=== PATIENT | male | born 1930 | race Caucasian/White ===

== ENCOUNTER 2016-12-06 11:22 | Emergency (ER) | payer BC, MEDICARE ==
[2016-12-06 13:15] VITALS: BP 119/61
[2016-12-06] MEDS ORDERED: NS 0.9% 1000 ML* 1,000 ML IV ONE (14:55)
--- NOTE | 2016-12-06 15:51 | RAD ---
HISTORY: Generalized weakness, right-sided head trauma COMPARISONS: March 28, 2015 TECHNIQUE: Multiple contiguous axial CT scans were obtained of the head without intravenous contrast. FINDINGS: HEMORRHAGE/INFARCT: There is no hemorrhage or acute infarct. MASSES/SHIFT: There is no mass or shift. EXTRA-AXIAL SPACES: There are no extra-axial fluid collections. SULCI AND VENTRICLES: The sulci and ventricles are normal in size and position for the patient's stated age. CEREBRUM: There is hypoattenuation of the periventricular and subcortical white matter. BRAINSTEM: There are no focal parenchymal abnormalities. CEREBELLUM: There are no focal parenchymal abnormalities. VESSELS: The vessels are grossly normal. PARANASAL SINUSES: There is no-fluid level within the right maxillary sinus ORBITS: The orbits are unremarkable. BONES AND SOFT TISSUE: No bone or soft tissue abnormalities are noted. OTHER: None IMPRESSION: 1. NO ACUTE INTRACRANIAL PATHOLOGY. 2. AIR-FLUID LEVEL WITHIN THE RIGHT MAXILLARY SINUS. IN THE CORRECT CLINICAL SETTING, THIS MAY REPRESENT ACUTE SINUSITIS
--- NOTE | 2016-12-06 15:52 | RAD ---
HISTORY: Weakness COMPARISONS: March 28, 2015 VIEWS:1: Single frontal portable view of the chest at 3:28 PM FINDINGS: LINES AND TUBES: None. CARDIOMEDIASTINAL SILHOUETTE: The cardiomediastinal silhouette is normal for portable technique. PLEURA: The costophrenic angles are sharp. No pleural abnormalities are noted. LUNG PARENCHYMA: The lungs are clear. ABDOMEN: The upper abdomen is clear. There is no subphrenic gas. BONES AND SOFT TISSUES: Degenerative changes are noted IMPRESSION: NO ACTIVE CARDIOPULMONARY DISEASE.
[2016-12-06 16:47] LABS: Hematocrit 42 % (42-52); Hemoglobin 13.8 g/dl (14.0-18.0); Mean Corpuscular HGB Conc 33 g/dl (31-36); Mean Corpuscular Hemoglobin 29 pg (27-31); Mean Corpuscular Volume 89 fL (80-94); Mean Platelet Volume 9 um3 (7.4-10.4); Red Blood Count 4.72 10^6/ul (4.0-5.4); Red Cell Distribution Width 14 % (10.5-15); Urine Bacteria Absent (Absent); Urine Bilirubin Negative (Negative); Urine Glucose Negative (Negative); Urine Nitrite Negative (Negative); White Blood Count 5.8 10^3/ul (3.5-10.8)
[2016-12-06 17:04] LABS: Troponin I 0.01 ng/mL (<0.04)
[2016-12-06 17:20] LABS: Albumin 3.6 g/dL (3.2-5.2); C Reactive Protein 31.71 mg/L (< 5.00); Calcium 9.2 mg/dL (8.6-10.3); EGFR African American 74.9 (>60); EGFR Non-African American 58.3 (>60); Globulin 2.8 g/dL (2-4); Magnesium 2.2 mg/dL (1.9-2.7); Potassium 4.2 mmol/L (3.5-5.0); Total Bilirubin 0.4 mg/dL (0.2-1.0); Total Protein 6.4 g/dL (6.4-8.9)
[2016-12-06 17:27] LABS: TSH (Thyroid Stimulating Horm) 1.17 mcIU/mL (0.34-5.60)
[2016-12-06] MEDS ORDERED: Amoxicillin/Clavulanate TAB* 875 MG PO ONE (17:40)
--- NOTE | 2016-12-06 17:43 | ED ---
Christoph Larry Aidan, scribed for Toribio Rojas MD on 12/06/16 at 1505 . Complex/Multi-Sys Presentation - HPI Summary HPI Summary: 86 y/o male presents to the ED with a complaint of an acute, constant, moderate injury due to an unwitnessed fall yesterday during which he lacerated his right ear. There was no reported LOC. According to the patient, he fell because his right leg gave out. Hx of neuropathy. Additionally, according to his daughter, he has been getting weaker over the past 2 weeks and now needs to walk with a cane (whereas, before, he was able to walk unassisted). Associated symptoms include worsening tremors over the past 2 weeks. Pt denies taking any blood thinners. 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 Onset/Duration: Sudden Onset, Lasting Hours, Still Present Timing: Constant - constant laceration, Pt has been getting weaker over the past 2 weeks and now needs to walk with a cane, Intermittent, Lasting: - intermittent episodes of tremors Severity Currently: Moderate Severity Initially: Moderate Aggravating Factor(s): unknown Alleviating Factor(s): unknown Associated Signs And Symptoms: Positive: Other - laceration to right ear, tremors, increased weakness over the past 2 weeks, episode of falling yesterday - Allergies/Home Medications Allergies/Adverse Reactions: Allergies Allergy/AdvReac Type Severity Reaction Status Date / Time No Known Allergies Allergy Verified 03/28/15 11:51 PMH/Surg Hx/FS Hx/Imm Hx Endocrine/Hematology History: Denies: Hx Diabetes Cardiovascular History: Denies: Hx Hypertension, Hx Pacemaker/ICD Respiratory History: Denies: Hx Asthma, Hx Chronic Obstructive Pulmonary Disease (COPD) Sensory History: Denies: Hx Hearing Aid Psychiatric History: Denies: Hx Panic Disorder - Cancer History Cancer Type, 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 TONSILS. WISDOM TEETH Infectious Disease History: No Infectious Disease History: Denies: Traveled Outside the [place] in Last 30 Days - Family History Known Family History: Positive: Hypertension - Social History Occupation: Retired Lives: Alone Alcohol Use: Daily Alcohol Amount: BEER DAILY Substance Use Type: Reports: None Smoking Status (MU): Former Smoker Review of Systems Constitutional: Other - increased weakness over the past 2 weeks, worsening tremors Negative: Fever, Chills, Fatigue Eyes: Negative ENT: Other - laceration to right ear resulting from a fall yesterday Negative: Epistaxis, Dental Pain, Sore Throat, Ear Ache Cardiovascular: Negative Respiratory: Negative Gastrointestinal: Negative Genitourinary: Negative Musculoskeletal: Negative Neurological: Other - episode of falling yesterday Positive: Weakness. Negative: Headache, Paresthesia, Numbness, Slurred Speech Psychological: Normal All Other Systems Reviewed And Are Negative: Yes Physical Exam Triage Information Reviewed: Yes Vital Signs On Initial Exam: Initial Vitals Temp Pulse Resp BP Pulse Ox 98.5 F 55 18 130/59 98 12/06/16 11:34 12/06/16 11:34 12/06/16 11:34 12/06/16 11:34 12/06/16 11:34 Vital Signs Reviewed: Yes Appearance: Positive: Well-Appearing, No Pain Distress Skin: Positive: Warm, Skin Color Reflects Adequate Perfusion, Dry, Other - two linear laceration to right ear, one 3mm and the other 4mm, presenting with dried blood Head/Face: Positive: Normal Head/Face Inspection Eyes: Positive: EOMI, YULIA, Other: - pupils about 2mm both sides ENT: Positive: Normal ENT inspection, Other - slightly dry oral mucosa, no blood in ear canal Neck: Positive: Supple, Nontender Respiratory/Lung Sounds: Positive: Clear to Auscultation, Breath Sounds Present Cardiovascular: Positive: Murmur. Negative: RRR Abdomen Description: Positive: Nontender, Soft Bowel Sounds: Positive: Present Musculoskeletal: Positive: Normal, Strength/ROM Intact Neurological: Positive: Normal, Sensory/Motor Intact, Alert, Oriented to Person Place, Time Psychiatric: Positive: Normal, Affect/Mood Appropriate Procedures - Laceration/Wound Repair 2 Location: Other - right ear Description: Linear - one was 3mm and other was 4mm Length, Depth and Shape: one laceration was 3mm long, the other was 4mm long Betadine Prep?: No Irrigated w/ Saline (ccs): 3 Laceration/Wound Explored: clean Closure: SteriStrips Suture Type: Other - used glue Layer Closure?: Yes Diagnostics - Vital Signs Vital Signs Temp Pulse Resp BP Pulse Ox 12/06/16 13:14 98.2 F 50 18 119/61 99 12/06/16 11:34 98.5 F 55 18 130/59 98 - Laboratory Lab Results: Lab Results 12/06/16 12/06/16 12/06/16 Range/Units 16:30 16:30 16:30 WBC 5.8 (3.5-10.8) 10^3/ul RBC 4.72 (4.0-5.4) 10^6/ul Hgb 13.8 L (14.0-18.0) g/dl Hct 42 (42-52) % MCV 89 (80-94) fL MCH 29 (27-31) pg MCHC 33 (31-36) g/dl RDW 14 (10.5-15) % Plt Count 131 L (150-450) 10^3/ul MPV 9 (7.4-10.4) um3 Neut % (Auto) 43.3 (38-83) % Lymph % (Auto) 28.6 (25-47) % [place] % (Auto) 23.9 H (1-9) % Eos % (Auto) 3.4 (0-6) % Baso % (Auto) 0.8 (0-2) % Absolute Neuts (auto) 2.5 (1.5-7.7) 10^3/ul Absolute Lymphs (auto) 1.7 (1.0-4.8) 10^3/ul Absolute Monos (auto) 1.4 H (0-0.8) 10^3/ul Absolute Eos (auto) 0.2 (0-0.6) 10^3/ul Absolute Basos (auto) 0 (0-0.2) 10^3/ul Absolute Nucleated RBC 0.01 10^3/ul Nucleated RBC % 0.1 INR (Anticoag Therapy) 1.05 (0.89-1.11) APTT 30.1 (26.0-36.3) seconds Sodium (133-145) mmol/L Potassium (3.5-5.0) mmol/L Chloride (101-111) mmol/L Carbon Dioxide (22-32) mmol/L Anion Gap (2-11) mmol/L BUN (6-24) mg/dL Creatinine (0.67-1.17) mg/dL Est GFR ( Amer) (>60) Est GFR (Non-Af Amer) (>60) BUN/Creatinine Ratio (8-20) Glucose (70-100) mg/dL Lactic Acid (0.5-2.0) mmol/L Calcium (8.6-10.3) mg/dL Magnesium (1.9-2.7) mg/dL Total Bilirubin (0.2-1.0) mg/dL AST (13-39) U/L ALT (7-52) U/L Alkaline Phosphatase (34-104) U/L Total Creatine Kinase (10-223) U/L CK-MB (CK-2) (0.6-6.3) ng/mL Troponin I (<0.04) ng/mL C-Reactive Protein (< 5.00) mg/L B-Natriuretic Peptide ( - 100) pg/mL Total Protein (6.4-8.9) g/dL Albumin (3.2-5.2) g/dL Globulin (2-4) g/dL Albumin/Globulin Ratio (1-3) Lipase (11.0-82.0) U/L TSH (0.34-5.60) mcIU/mL Urine Color Yellow Urine Appearance Clear Urine pH 5.0 (5-9) Ur Specific [place] 1.020 (1.010-1.030) Urine Protein Negative (Negative) Urine Ketones Negative (Negative) Urine Blood 1+ H (Negative) Urine Nitrate Negative (Negative) Urine Bilirubin Negative (Negative) Urine Urobilinogen Negative (Negative) Ur Leukocyte Esterase Negative (Negative) Urine WBC (Auto) Absent (Absent) Urine RBC (Auto) Trace(0-2/hpf) (Absent) Ur Squamous Epith Cells Present H (Absent) Urine Bacteria Absent (Absent) Urine Glucose Negative (Negative) 12/06/16 12/06/16 12/06/16 Range/Units 16:30 16:30 16:30 WBC (3.5-10.8) 10^3/ul RBC (4.0-5.4) 10^6/ul Hgb (14.0-18.0) g/dl Hct (42-52) % MCV (80-94) fL MCH (27-31) pg MCHC (31-36) g/dl RDW (10.5-15) % Plt Count (150-450) 10^3/ul MPV (7.4-10.4) um3 Neut % (Auto) (38-83) % Lymph % (Auto) (25-47) % V[place] % (Auto) (1-9) % Eos % (Auto) (0-6) % Baso % (Auto) (0-2) % Absolute Neuts (auto) (1.5-7.7) 10^3/ul Absolute Lymphs (auto) (1.0-4.8) 10^3/ul Absolute Monos (auto) (0-0.8) 10^3/ul Absolute Eos (auto) (0-0.6) 10^3/ul Absolute Basos (auto) (0-0.2) 10^3/ul Absolute Nucleated RBC 10^3/ul Nucleated RBC % INR (Anticoag Therapy) (0.89-1.11) APTT (26.0-36.3) seconds Sodium 138 (133-145) mmol/L Potassium 4.2 (3.5-5.0) mmol/L Chloride 108 (101-111) mmol/L Carbon Dioxide 24 (22-32) mmol/L Anion Gap 6 (2-11) mmol/L BUN 26 H (6-24) mg/dL Creatinine 1.18 H (0.67-1.17) mg/dL Est GFR ( Amer) 74.9 (>60) Est GFR (Non-Af Amer) 58.3 (>60) BUN/Creatinine Ratio 22.0 H (8-20) Glucose 101 H (70-100) mg/dL Lactic Acid 1.3 (0.5-2.0) mmol/L Calcium 9.2 (8.6-10.3) mg/dL Magnesium 2.2 (1.9-2.7) mg/dL Total Bilirubin 0.40 (0.2-1.0) mg/dL AST 26 (13-39) U/L ALT 15 (7-52) U/L Alkaline Phosphatase 59 (34-104) U/L Total Creatine Kinase 103 (10-223) U/L CK-MB (CK-2) 3.0 (0.6-6.3) ng/mL Troponin I 0.01 (<0.04) ng/mL C-Reactive Protein 31.71 H (< 5.00) mg/L B-Natriuretic Peptide 141 H ( - 100) pg/mL Total Protein 6.4 (6.4-8.9) g/dL Albumin 3.6 (3.2-5.2) g/dL Globulin 2.8 (2-4) g/dL Albumin/Globulin Ratio 1.3 (1-3) Lipase 37 (11.0-82.0) U/L TSH 1.17 (0.34-5.60) mcIU/mL Urine Color Urine Appearance Urine pH (5-9) Ur Specific [place] (1.010-1.030) Urine Protein (Negative) Urine Ketones (Negative) Urine Blood (Negative) Urine Nitrate (Negative) Urine Bilirubin (Negative) Urine Urobilinogen (Negative) Ur Leukocyte Esterase (Negative) Urine WBC (Auto) (Absent) Urine RBC (Auto) (Absent) Ur Squamous Epith Cells (Absent) Urine Bacteria (Absent) Urine Glucose (Negative) Result Diagrams: 12/06/16 16:30 12/06/16 16:30 Lab Statement: Any lab studies that have been ordered have been reviewed, and results considered in the medical decision making process. Complex Multi-Symp Course/Dx Assessment/Plan: WELL IN ED. GIVEN NS 1 LITER IN ED. DISCUSSED RESULTS WITH PATIENT/DAUGHTER. DISCUSSED ABX TREATMENT FOR CT FINDING OF SINUSITIS. WILL RX AUGMENTIN. DISCHARGE HOME STABLE. - Diagnoses Provider Diagnoses: Sinusitis, Dehydration, Ear lobe laceration, Head injury Discharge - Discharge Plan Condition: Stable Disposition: HOME Prescriptions: Amoxicillin/Clavulanate TAB* [Augmentin TAB 875*] 875 mg PO BID #19 tab Patient Education Materials: Dehydration (ED), Laceration (ED), Sinusitis (ED) , Skin Adhesive Care (ED) Referrals: Ming Houston MD [Primary Care Provider] - Additional Instructions: FOLLOW UP WITH YOUR DOCTOR. RETURN TO THE EMERGENCY DEPARTMENT FOR ANY WORSENING OF YOUR CONDITION OR QUESTIONS OR CONCERNS. The documentation as recorded by the Christoph perez Aidan accurately reflects the service I personally performed and the decisions made by me, Toribio Rojas MD.
== END 2016-12-06 18:40 | disposition home or self-care (01) ==
LOC: ED 11:22
DX: S01.311A Laceration without foreign body of right ear, initial encounter (principal); J32.9 Chronic sinusitis, unspecified; E86.0 Dehydration; S09.90XA Unspecified injury of head, initial encounter; W19.XXXA Unspecified fall, initial encounter; Y92.9 Unspecified place or not applicable; Z85.828 Personal history of other malignant neoplasm of skin; Z87.891 Personal history of nicotine dependence; R25.1 Tremor, unspecified
CPT/HCPCS: 12011; 36415; 70450; 71010; 80053; 81003; 81015; 82550; 82553; 83605; 83690; 83735; 83880; 84443; 84484; 85025; 85610; 85730; 86140; 99282

== ENCOUNTER 2017-06-06 14:31 | Emergency (ER) | payer MEDICARE ==
[2017-06-06] MEDS ORDERED: Acetaminophen TAB* 325 MG PO ONE (16:27)
--- NOTE | 2017-06-06 16:28 | UC ---
Estiven Larry Benjamin, scribed for Karina Sierra MD on 06/06/17 at 1618 . Laceration HPI - HPI Summary HPI Summary: 87yo male presents with upper lip abrasion, bilateral patellar abrasions from a mechanical fall this afternoon. Pt missed a step and fell face forward injuring his lip and right knee cap. Pt was not using his cane or other assist device at the time of injury. Pt denies blood HEENT. Pt denies broken teeth. No neck or back pain. Pt denies head injury other than upper lip. No cp, sob, abd pain. No n/v. denies neck or back pain. Pt has ambulated following incident. . Pt didnt pass out upon falling and pt states recalling the entire episode. 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 Hx of ITP, AAA, and TIA. FHx of CAD. Denies Hx of OR. Reviewed pts medication and allergy lists. - History Of Current Complaint Chief Complaint: UCGeneralIllness Stated Complaint: LIP LACERATION/KNEE INJURY-FALL Time Seen by Provider: 06/06/17 16:04 Hx Obtained From: Patient, Family/Shorth[employer] Reporter - daughter Laceration Location: Knee - bialteral knee caps; and upper lip Mechanism Of Injury: Blunt Trauma - fall from standing height Severity: Mild Pain Intensity: 0 Pain Scale Used: 0-10 Numeric Aggravating Factors: Nothing - Allergies/Home Medications Allergies/Adverse Reactions: Allergies Allergy/AdvReac Type Severity Reaction Status Date / Time No Known Allergies Allergy Verified 03/28/15 11:51 PMH/Surg Hx/FS Hx/Imm Hx Previously Healthy: No - Skin CA, ITP Endocrine History: Hypothyroidism - Surgical History Surgical History: Yes Surgery Procedure, Year, and Place: RT HIP REPLACEMENT. TONSILS. WISDOM TEETH - Family History Known Family History: Positive: Cardiac Disease, Hypertension - Social History Occupation: Retired Lives: With Family - at [employer] Alcohol Use: None Alcohol Amount: BEER DAILY Substance Use Type: None Smoking Status (MU): Never Smoked Tobacco Review of Systems Constitutional: Negative Skin: Other - laceration: upper lip, right knee cap. Abrasion: left knee cap Eyes: Negative ENT: Negative Respiratory: Negative Cardiovascular: Negative Gastrointestinal: Negative Genitourinary: Negative Motor: Negative Neurovascular: Negative Musculoskeletal: Negative Neurological: Negative Psychological: Negative All Other Systems Reviewed And Are Negative: Yes Physical Exam Triage Information Reviewed: Yes Appearance: Well-Appearing, No Pain Distress, Well-Nourished Vital Signs: Initial Vital Signs Temp 98 F 06/06/17 14:51 Pulse 54 06/06/17 14:51 Resp 16 06/06/17 14:51 BP 142/57 06/06/17 14:51 Pulse Ox 100 06/06/17 14:51 Vital Signs Reviewed: Yes Eye Exam: Normal Eyes: Positive: Conjunctiva Clear ENT: Positive: Normal ENT inspection, Hearing grossly normal, Pharynx normal, TMs normal, Other: - No hemotymp b/l No septal hematoma b/l No broken or loose teeth No blood oropharphynx Dental Exam: Normal Neck exam: Normal Neck: Positive: Supple, Nontender, No Lymphadenopathy Respiratory Exam: Normal Respiratory: Positive: Chest non-tender, Lungs clear, Normal breath sounds, No respiratory distress Cardiovascular Exam: Normal Cardiovascular: Positive: RRR, No Murmur, Pulses Normal Abdominal Exam: Normal Abdomen Description: Positive: Nontender, No Organomegaly, Soft Bowel Sounds: Positive: Present Musculoskeletal: Positive: Other: - + SLE b/l + flex/ext knee, ankle without pain or limitation No pain c/t/l/s Full AROM c spine Neurological Exam: Normal Neurological: Positive: Alert, Muscle Tone Normal Psychological Exam: Normal Skin: Positive: Other - Pt with non-suturable abraison to b/l knee, midline upper lip at [place] border Pt with small laceration inside upper lip, midline - not suturable minimal edema No ecchymosis, abrasion, lacerations to chest, abd, back Diagnostics - Radiology Brain CT WO Xray Interpretation: No Acute Changes - IMPRESSION: 1. New since the most recent CT of the brain dated December 06, 2016, there is hyperdense 3 mm thickening of the falx cerebri which could be seen in the setting of subarachnoid hemorrhage status post trauma. 2. Additional chronic findings similar in appearance to the previous CT of the brain. Radiology Interpretation Completed By: Radiologist Re-Evaluation - Re-Evaluation First Eval Re-Evaluation Time: 17:27 Comment: Discussed imaging results with the pt, concern for possible subarachnoid on CT. Upon recheck of vitals, pt with low heart rate (46) - daughter states this has happened before. after discussing with pt and daughter - recommend transfer to ED by EMS. will check BG. IV. EKG. daughter in agreement with plan Laceration Course/Dx - Course/Dx Course Of Treatment: Blood pressure noted and patient informed to follow up with PCP. Discussed with Dr. Salinas ([facility]) for transfer via EMS at 17:37. Pt with a mechanical fall with abrasions to upper lip and bilateral knees. Pt with h/o ITP. Will clean wounds - non suturable. APAP. d/w daughter wound care. anticipate increased stiffness. PCP f/u. CT head. strong recommendation of assistance device - Differential Dx - Laceration/Wound Provider Diagnoses: abrasions, fall, possible SAH - Physician Notification/Consults Discussed Patient Care With: Dr. Salinas - [id number] Discharge - Discharge Plan Condition: Good Disposition: TRANS HIGHER LVL OF CARE FAC Referrals: Ming Houston MD [Primary Care Provider] - The documentation as recorded by the Estiven perez Benjamin accurately reflects the service I personally performed and the decisions made by , Karina Sierra MD.
[2017-06-06 17:18] VITALS: BP 106/55
--- NOTE | 2017-06-06 17:22 | RAD ---
INDICATION: Fall COMPARISON: Most recent CT of the brain is dated December 06, 2016 TECHNIQUE: Contiguous axial sections of the brain were obtained from the skull base to the vertex without contrast. FINDINGS: There is thickening of the falx cerebri measuring up to 3 mm in thickness and exhibiting a Hounsfield unit density that could be compatible with hemorrhage. This is new since the prior CT of the brain. Aside from this, there is no subdural hyperdense fluid collection, mass or mass effect. The ventricles, cisterns and sulci exhibit involutional changes that are symmetrical and unchanged from the previous CT of the brain. There is mild periventricular and subcortical white matter hypoattenuation most consistent with chronic microvascular disease. The silva-white matter differentiation is adequately maintained and there is no sulcal effacement. No significant focal osseous abnormality is present. The visualized portion of the paranasal sinuses and mastoid air cells appear clear. IMPRESSION: 1. New since the most recent CT of the brain dated December 06, 2016, there is hyperdense 3 mm thickening of the falx cerebri which could be seen in the setting of subarachnoid hemorrhage status post trauma. 2. Additional chronic findings similar in appearance to the previous CT of the brain.
== END 2017-06-06 18:00 | disposition short-term general hospital (02) ==
LOC: UCEAST 14:31
DX: S01.511A Laceration without foreign body of lip, initial encounter (principal); D69.3 Immune thrombocytopenic purpura; W19.XXXA Unspecified fall, initial encounter; S80.212A Abrasion, left knee, initial encounter; S80.211A Abrasion, right knee, initial encounter; I71.4 Abdominal aortic aneurysm, without rupture; E03.9 Hypothyroidism, unspecified; Z85.828 Personal history of other malignant neoplasm of skin; Z86.73 Personal history of transient ischemic attack (TIA), and cerebral infarction without residual deficits; Z96.641 Presence of right artificial hip joint
CPT/HCPCS: 70450; 93005; 99214; A9270-GY; G0463

== ENCOUNTER 2017-06-06 18:26 | Emergency (ER) | payer MEDICARE ==
[2017-06-06] MEDS ORDERED: NS 0.9% 1000 ML* 1,000 ML IV ONE (20:48)
[2017-06-06 21:15] LABS: Hematocrit 41 % (42-52); Hemoglobin 13.4 g/dl (14.0-18.0); Mean Corpuscular HGB Conc 33 g/dl (31-36); Mean Corpuscular Hemoglobin 30 pg (27-31); Mean Corpuscular Volume 92 fL (80-94); Mean Platelet Volume 8 um3 (7.4-10.4); Red Blood Count 4.45 10^6/ul (4.0-5.4); Red Cell Distribution Width 15 % (10.5-15); White Blood Count 7.7 10^3/ul (3.5-10.8)
[2017-06-06 21:30] LABS: Albumin 3.6 g/dL (3.2-5.2); BUN/Creatinine Ratio 24.8 (8-20); Calcium 8.8 mg/dL (8.6-10.3); EGFR African American 85.5 (>60); EGFR Non-African American 66.5 (>60); Globulin 2.4 g/dL (2-4); Potassium 3.9 mmol/L (3.5-5.0); Total Bilirubin 0.4 mg/dL (0.2-1.0)
[2017-06-06 21:31] LABS: Troponin I 0.01 ng/mL (<0.04)
[2017-06-06 22:59] VITALS: BP 128/68
--- NOTE | 2017-06-07 01:26 | ED ---
I, Jose Luis,Anusha, scribed for Hi Riddle MD on 06/06/17 at 2054 . Adult Trauma - HPI Summary HPI Summary: This 87 y/o male presents to ED from [facility] after a mechanical fall. Positive abrasion at above lips, bilat knee, and pain at RUE hand. Negative head injury, neck pain, or syncope. Pt was able to ambulate to bathroom without problem after the fall. He was sent to ED when CT Brain is noted with some change from his last CT sutdy in December 2016. PMHx includes ITP and hypothyroidism. Brain CT from [facility] reports: 1. New since the most recent CT of the brain dated December 06, 2016, there is hyperdense 3 mm thickening of the falx cerebri which could be seen in the setting of subarachnoid hemorrhage status post trauma. 2. Additional chronic findings similar in appearance to the previous CT of the brain. - History of Current Complaint Chief Complaint: EDNeurologicalDeficit Stated Complaint: FALL/LIP LAC/KNEE INJURY Time Seen by Provider: 06/06/17 20:32 Hx Obtained From: Patient, Medical Records Mechanism of Injury: Blunt Trauma Loss of Consciousness: no loss of consciousness Pain Intensity: 2 Pain Scale Used: 0-10 Numeric Aggravating Factor(s): Nothing Alleviating Factor(s): Nothing Associated Signs & Symptoms: Negative: SOB, Chest Pain, Fever, Loss of Consciousness - Allergy/Home Medications Allergies/Adverse Reactions: Allergies Allergy/AdvReac Type Severity Reaction Status Date / Time No Known Allergies Allergy Verified 03/28/15 11:51 PMH/Surg Hx/FS Hx/Imm Hx Endocrine/Hematology History: Denies: Hx Diabetes Cardiovascular History: Denies: Hx Hypertension, Hx Pacemaker/ICD Respiratory History: Denies: Hx Asthma, Hx Chronic Obstructive Pulmonary Disease (COPD) Sensory History: Denies: Hx Hearing Aid Psychiatric History: Denies: Hx Panic Disorder - Cancer History Cancer Type, 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 TONSILS. WISDOM TEETH Infectious Disease History: No Infectious Disease History: Denies: Hx Clostridium Difficile, Hx Hepatitis, Hx Human Immunodeficiency Virus (HIV), Hx of Known/Suspected MRSA, Hx Shingles, Hx Tuberculosis, Hx Known/ Suspected VRE, Hx Known/Suspected VRSA, History Other Infectious Disease, Traveled Outside the [place] in Last 30 Days - Family History Known Family History: Positive: Cardiac Disease, Hypertension - Social History Alcohol Use: None Alcohol Amount: BEER DAILY Substance Use Type: Reports: None Smoking Status (MU): Never Smoked Tobacco Review of Systems Negative: Fever Negative: Chest Pain Negative: Shortness Of Breath Positive: Other - RUE hand pain. RLE knee pain. Negative neck pain Positive: Other - Abrasion at bilat knees and above lips. Negative: Headache, Syncope All Other Systems Reviewed And Are Negative: Yes Physical Exam - Summary Physical Exam Summary: The patient is well-nourished in no acute distress and in no acute pain. The skin is noted with abrasion above his knees and scrapes on bilat knees. HEENT: The head is normocephalic and atraumatic. The pupils are equal and reactive. The conjunctivae are clear and without drainage. Nares are patent and without drainage. Mouth reveals moist mucous membranes and the throat is without erythema and exudate. The external ears are intact. The ear canals are patent and without drainage. NEGATIVE HEMOTYMPANIC. The tympanic membranes are intact. No loose dentition. No nose swelling. Neck is supple with full range of motion and non-tender. There are no carotid bruits. There is no neck vein distension. Respiratory: Chest is non-tender. Lungs are clear to auscultation and breath sounds are symmetrical and equal. Cardiovascular: Hear is regular rate and rhythm. There is no murmur or rub auscultated. There is no peripheral edema and pulses are symmetrical and equal. Abdomen: The abdomen is soft and non-tender. There are normal bowel sounds heard in all four quadrants and there is no organomegaly palpated. Musculoskeletal: There is no back pain noted. NO limited ROM at RUE hand, bilat knee. There is good capillary refill. There is no peripheral edema or calf tenderness elicited. No hip tenderness. No cervical tenderness. No localized tenderness at RUE hand. Neurological: Patient is alert and oriented to person, place and time. The patient has symmetrical motor strength in all four extremities. Cranial nerves are grossly intact. Deep tendon reflexes are symmetrical and equal in all four extremities. No facial droop. Speech normal. Psychiatric: The patient has an appropriate affect and does not exhibit any anxiety or depression. Triage Information Reviewed: Yes Vital Signs On Initial Exam: Initial Vitals Temp Pulse Resp BP Pulse Ox 97.8 F 50 18 155/76 100 06/06/17 18:27 06/06/17 18:27 06/06/17 18:27 06/06/17 18:27 06/06/17 18:27 Vital Signs Reviewed: Yes - Sergio Coma Scale Coma Scale Total: 15 Diagnostics - Vital Signs Vital Signs Temp Pulse Resp BP Pulse Ox 06/06/17 20:00 23 171/74 06/06/17 19:30 46 19 130/73 97 06/06/17 19:00 47 17 133/76 99 06/06/17 18:31 51 19 100 06/06/17 18:30 155/76 06/06/17 18:27 97.8 F 50 18 155/76 100 - Laboratory Lab Results: Lab Results 06/06/17 06/06/17 06/06/17 Range/Units 21:05 21:05 21:05 WBC 7.7 (3.5-10.8) 10^3/ul RBC 4.45 (4.0-5.4) 10^6/ul Hgb 13.4 L (14.0-18.0) g/dl Hct 41 L (42-52) % MCV 92 (80-94) fL MCH 30 (27-31) pg MCHC 33 (31-36) g/dl RDW 15 (10.5-15) % Plt Count 142 L (150-450) 10^3/ul MPV 8 (7.4-10.4) um3 Neut % (Auto) 54.2 (38-83) % Lymph % (Auto) 29.6 (25-47) % Schuyler % (Auto) 12.7 H (1-9) % Eos % (Auto) 2.6 (0-6) % Baso % (Auto) 0.9 (0-2) % Absolute Neuts (auto) 4.2 (1.5-7.7) 10^3/ul Absolute Lymphs (auto) 2.3 (1.0-4.8) 10^3/ul Absolute Monos (auto) 1.0 H (0-0.8) 10^3/ul Absolute Eos (auto) 0.2 (0-0.6) 10^3/ul Absolute Basos (auto) 0.1 (0-0.2) 10^3/ul Absolute Nucleated RBC 0.01 10^3/ul Nucleated RBC % 0.1 INR (Anticoag Therapy) 1.06 (0.89-1.11) APTT 29.4 (26.0-36.3) seconds Sodium (133-145) mmol/L Potassium (3.5-5.0) mmol/L Chloride (101-111) mmol/L Carbon Dioxide (22-32) mmol/L Anion Gap (2-11) mmol/L BUN (6-24) mg/dL Creatinine (0.67-1.17) mg/dL Est GFR ( Amer) (>60) Est GFR (Non-Af Amer) (>60) BUN/Creatinine Ratio (8-20) Glucose (70-100) mg/dL Lactic Acid 1.1 (0.5-2.0) mmol/L Calcium (8.6-10.3) mg/dL Total Bilirubin (0.2-1.0) mg/dL AST (13-39) U/L ALT (7-52) U/L Alkaline Phosphatase (34-104) U/L Troponin I (<0.04) ng/mL Total Protein (6.4-8.9) g/dL Albumin (3.2-5.2) g/dL Globulin (2-4) g/dL Albumin/Globulin Ratio (1-3) // Range/Units 21:05 WBC (3.5-10.8) 10^3/ul RBC (4.0-5.4) 10^6/ul Hgb (14.0-18.0) g/dl Hct (42-52) % MCV (80-94) fL MCH (27-31) pg MCHC (31-36) g/dl RDW (10.5-15) % Plt Count (150-450) 10^3/ul MPV (7.4-10.4) um3 Neut % (Auto) (38-83) % Lymph % (Auto) (25-47) % Schuyler % (Auto) (1-9) % Eos % (Auto) (0-6) % Baso % (Auto) (0-2) % Absolute Neuts (auto) (1.5-7.7) 10^3/ul Absolute Lymphs (auto) (1.0-4.8) 10^3/ul Absolute Monos (auto) (0-0.8) 10^3/ul Absolute Eos (auto) (0-0.6) 10^3/ul Absolute Basos (auto) (0-0.2) 10^3/ul Absolute Nucleated RBC 10^3/ul Nucleated RBC % INR (Anticoag Therapy) (0.89-1.11) APTT (26.0-36.3) seconds Sodium 138 (133-145) mmol/L Potassium 3.9 (3.5-5.0) mmol/L Chloride 108 (101-111) mmol/L Carbon Dioxide 25 (22-32) mmol/L Anion Gap 5 (2-11) mmol/L BUN 26 H (6-24) mg/dL Creatinine 1.05 (0.67-1.17) mg/dL Est GFR ( Amer) 85.5 (>60) Est GFR (Non-Af Amer) 66.5 (>60) BUN/Creatinine Ratio 24.8 H (8-20) Glucose 91 (70-100) mg/dL Lactic Acid (0.5-2.0) mmol/L Calcium 8.8 (8.6-10.3) mg/dL Total Bilirubin 0.40 (0.2-1.0) mg/dL AST 19 (13-39) U/L ALT 13 (7-52) U/L Alkaline Phosphatase 52 (34-104) U/L Troponin I 0.01 (<0.04) ng/mL Total Protein 6.0 L (6.4-8.9) g/dL Albumin 3.6 (3.2-5.2) g/dL Globulin 2.4 (2-4) g/dL Albumin/Globulin Ratio 1.5 (1-3) Result Diagrams: 06/06/17 21:05 06/06/17 21:05 Lab Statement: Any lab studies that have been ordered have been reviewed, and results considered in the medical decision making process. - EKG 2156 Cardiac Rate: Bradycardia - 52 bpm EKG Rhythm: Sinus Bradycardia EKG Interpretation: Poor R-wave progression Re-Evaluation - Re-Evaluation First Eval Re-Evaluation Time: 21:25 Comment: in to update pt and daughter present at bedside on neuro surgeon's consult regarding Brain CT. Pt still does not have any POLLACK or any neurological symptoms. Second Eval Re-Evaluation Time: 22:13 Comment: MD updates pt and daughter present at bedside with blood work. Plan of care involving discharge is discussed, and they are agreeable. Adult Trauma Course/Dx - Course Assessment/Plan: This 87 y/o male presents to ED from Urgent Care after a mechanical fall from standing position. Pt had CT Brain taken at Urgent Care, which was noted with change from his last study in December 2016. CT Brain study was reviewed with Dr. Butler, and he disagree that there is brain bleed. Bloodwork is wnl. Pt is noted stable without any POLLACK or neurological deficit during ED course, and pt is stable for discharge. - Diagnoses Provider Diagnoses: Facial contusion, Abrasion of knee, bilateral, Dehydration - Physician Notifications Discussed Care Of Patient With: Jose Butler Time Discussed With Above Provider: 20:51 Discharge - Discharge Plan Condition: Stable Disposition: HOME Patient Education Materials: Fall Prevention for Older Adults (ED), Facial Contusion (ED), Abrasion (ED) Referrals: Ming Houston MD [Primary Care Provider] - 2 Days The documentation as recorded by the Jose Luis perez Soohyun accurately reflects the service I personally performed and the decisions made by me, Hi Riddle MD.
== END 2017-06-06 23:02 | disposition home or self-care (01) ==
LOC: ED 18:26
DX: S00.83XA Contusion of other part of head, initial encounter (principal); S80.212A Abrasion, left knee, initial encounter; S80.211A Abrasion, right knee, initial encounter; M25.561 Pain in right knee; E86.0 Dehydration; R50.9 Fever, unspecified; W19.XXXA Unspecified fall, initial encounter; Y93.9 Activity, unspecified; Y92.9 Unspecified place or not applicable; Y99.9 Unspecified external cause status
CPT/HCPCS: 36415; 80053; 83605; 84484; 85025; 85610; 85730; 99284

== ENCOUNTER 2017-12-17 13:25 | Inpatient (IN) | payer MEDICARE ==
--- OUTSIDE RECORDS SUMMARY | 2017-12-17 13:42 | XMS REPORT ---
:1930 External Reference #:[id number] Author Organization [facility] Address [address] [place] [address] Phone [phone] Care Team Providers Name Role Phone Ming Houston Care Team Information Wax Specialist Unavailable Ming Houston Primary Care Physician Unavailable Payers Type Date Identification Numbers Payment Provider Subscriber Commercial Policy Number: [id number] Medicare Blue Ppo [place] Khang Velásquez PayID: [id number] [address] [address] [place] [address] Commercial Effective: Policy Number: GómezÁngelaroma VermaWills 2012 [id number] Medicare [place] Group Number: [id number] [address] Group Name: [place] [address] PayID: [id number] Advance Directives Type Date Description Status Comment Other Directive 04/15/2017 Health Care Proxy Current and Verified Problems Date Description Provider Status Onset: 10/04/2013 Benign neoplasm of skin Ming Houston M.D. Active Onset: 10/04/2013 Contact dermatitis Ming Houston M.D. Active Onset: 10/04/2013 Hypothyroidism Ming Houston M.D. Active Onset: 11/16/2013 Abdominal aortic aneurysm without Ming Houston M.D. Active rupture Onset: 11/16/2013 Benign prostatic hypertrophy without Ming Houston M.D. Active outflow obstruction Onset: 07/29/2014 Essential tremor Ming Houston M.D. Active Onset: 04/21/2015 Skin sensation disturbance Ming Houston M.D. Active Onset: 04/21/2015 Transient cerebral ischemia Ming Houston M.D. Active Onset: 11/28/2015 Malaise and fatigue Ming Houston M.D. 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 Active infection Onset: 06/07/2016 Neoplasm of uncertain behavior of skin Ming Houston M.D. Active Onset: 12/13/2016 Simple laceration of auricle of ear Ming Houston M.D. Active Onset: 04/21/2017 Nervous system symptoms Ming Houston M.D. Active Onset: 04/21/2017 Anemia Ming Houston M.D. Active Onset: 08/25/2017 Unspecified injury of head, initial Ming Houston M.D. Active encounter Onset: 08/25/2017 Conductive hearing loss Ming Houston M.D. Active Family History Date Family Member(s) Problem(s) Comments Father due to [place] () - 65 yo Mother due to after fx leg at 79 yo () Children 3 First Son back problems First Son skin cancer First Daughter Unremarkable Second Daughter dysphonia [place] palsy Siblings 3 First Brother due to Natural Causes () - 89 yo Second Brother due to MN () - 75 yo First Sister due to Natural Causes () - 89 yo Social History Type Date Description Comments Marital Status Legal Status: 2013 Occupation Retired teacher Cigarette Use Nonsmoker ETOH Use Occasionally consumes alcohol 3-4 beers per week Smoking Patient has never smoked Daily Caffeine Consumes on average 1 cup of coffee per day Exercise Type/Frequency square dancer Seat Belt/Car Seat Always uses seat belt Allergies, Adverse Reactions, Alerts Date Description Reaction Status Severity Comments 08/22/2013 Relafen active Medications Medication Date Status Form Strength Qnty SIG Indications Ordering Provider Azithromycin 12/16/ Active Tablets 250mg 6tabs taya han J16.8 Eliane 2018 directed, 2 Rosi tabs day one, Walker, one tab day 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 2018 training and improvement in balance for recurrent falls. Hearing Eval 08/25/ Hx pt needs to H90.2 Ming Hopper 2016 - have a Midura, hearing M.DLuther 2017 evaluation for hearing loss Azithromycin 03/28/ Hx Tablets 250mg 4tabs 1 tab daily Ana Cristina 2017 - for next 4 [place], 04/21/ (has M.D. 2016 already taken first dose) Note 11/02/ Hx pt does not Ming Hopper 2016 - need Midura, 08/25/ prophalactic M.DLuther 2016 meds for teeth cleaning Cephalexin 05/29/ Hx Capsules 500mg 14caps 1 by mouth S50.862A Jessica 2015 - twice a day Kathi, 06/07/ for 7 days FINANCIAL SYSTEMS DIRECTOR 2016 Magnesium 07/29/ Hx Capsules 400mg bid Ming T. Oxide 2013 - Midura, 01/27/ M.D. 2014 Synthroid 00/ Hx Tablets 75mcg 60tabs 1 po qod 244.9 Ming T. 0000 - alternate w/ Midura, 01/21/ 100mcg M.D. 2013 Flomax / Hx Capsules 0.4mg 30caps 1 po qd 600.00 Ming T. 0000 - [facility]ura, 01/21/ M.D. 2013 Lorazepam / Hx Tablets 1mg 1 tab po prn Unknown 0000 - anxiety 2012 Synthroid /00/ Hx Tablets 100mcg 90tabs 1 po qD Ming T. 0000 - [facility]ura, 12/03/ M.D. 2016 Amoxicillin 00/ Hx Tablets 875mg 1 tab twice a Unknown 0000 - day 2016 Immunizations CPT Code Status Date Vaccine Lot # [id number] Given 07/16/2016 High-Dose, Influenza Virus Vacccine-fluzone 65 and older [id number] Given 11/28/2015 High-Dose, Influenza Virus Vacccine-fluzone 65 and [id number] older [id number] Given 07/29/2014 High-Dose, Influenza Virus Vacccine-fluzone 65 and [id number] older Vital Signs Date Vital Result Comment 12/16/2017 BP Systolic 100 mmHg BP Diastolic 70 mmHg Heart Rate 60 /min Body Temperature 97.9 F Respiratory Rate 18 /min Height 64 inches 5'4" Weight 167.00 lb BMI (Body Mass Index) 28.7 kg/m2 08/25/2017 BP Systolic 114 mmHg BP Diastolic 60 mmHg Heart Rate 66 /min Body Temperature 98.1 F Respiratory Rate 16 /min Height 64 inches 5'4" Weight 165.12 lb BMI (Body Mass Index) 28.3 kg/m2 04/21/2017 BP Systolic 120 mmHg BP Diastolic 70 mmHg Heart Rate 64 /min Body Temperature 98.6 F Respiratory Rate 16 /min Height 64 inches 5'4" Weight 166.00 lb BMI (Body Mass Index) 28.5 kg/m2 12/13/2016 BP Systolic 118 mmHg BP Diastolic 68 mmHg Heart Rate 66 /min Body Temperature 97.7 F Respiratory Rate 16 /min Height 64 inches 5'4" Weight 166.38 lb BMI (Body Mass Index) 28.6 kg/m2 06/07/2016 BP Systolic 130 mmHg BP Diastolic 60 mmHg Heart Rate 52 /min Body Temperature 98.4 F Respiratory Rate 16 /min Height 64 inches 5'4" Weight 167.00 lb BMI (Body Mass Index) 28.7 kg/m2 05/31/2016 BP Systolic 112 mmHg BP Diastolic 70 mmHg Heart Rate 52 /min Body Temperature 98.4 F Respiratory Rate 16 /min Height 64 inches 5'4" Weight 163.50 lb BMI (Body Mass Index) 28.1 kg/m2 05/29/2016 BP Systolic 146 mmHg BP Diastolic 90 mmHg Heart Rate 56 /min Body Temperature 97.5 F Respiratory Rate 16 /min Height 64 inches 5'4" Weight 163.50 lb BMI (Body Mass Index) 28.1 kg/m2 11/28/2015 BP Systolic 108 mmHg BP Diastolic 72 mmHg Heart Rate 60 /min Body Temperature 97.5 F Respiratory Rate 16 /min Height 64 inches 5'4" Weight 157.12 lb BMI (Body Mass Index) 27.0 kg/m2 04/21/2015 BP Systolic 118 mmHg BP Diastolic 74 mmHg Heart Rate 56 /min Body Temperature 98.7 F Respiratory Rate 16 /min Height 64 inches 5'4" measured Weight 156.50 lb BMI (Body Mass Index) 26.9 kg/m2 03/19/2015 BP Systolic 110 mmHg BP Diastolic 70 mmHg Heart Rate 60 /min Body Temperature 97.4 F Respiratory Rate 16 /min Height 64 inches 5'4" measured Weight 156.00 lb BMI (Body Mass Index) 26.8 kg/m2 01/27/2015 BP Systolic 128 mmHg BP Diastolic 64 mmHg Heart Rate 56 /min Body Temperature 97.6 F Respiratory Rate 16 /min Height 64 inches 5'4" measured Weight 157.12 lb BMI (Body Mass Index) 27.0 kg/m2 07/29/2014 BP Systolic 130 mmHg BP Diastolic 70 mmHg Heart Rate 54 /min irregular Body Temperature 97.0 F Respiratory Rate 15 /min Height 64 inches 5'4" measured Weight 155.00 lb BMI (Body Mass Index) 26.6 kg/m2 01/21/2014 BP Systolic 126 mmHg BP Diastolic 70 mmHg Heart Rate 60 /min Body Temperature 97.8 F Respiratory Rate 16 /min Height 64 inches 5'4" measured Weight 157.00 lb BMI (Body Mass Index) 26.9 kg/m2 11/16/2013 BP Systolic 108 mmHg BP Diastolic 60 mmHg Heart Rate 56 /min Body Temperature 98.6 F Respiratory Rate 16 /min Height 64 inches 5'4" measured Weight 161.38 lb BMI (Body Mass Index) 27.7 kg/m2 10/04/2013 BP Systolic 110 mmHg BP Diastolic 70 mmHg Heart Rate 56 /min Body Temperature 97.7 F Respiratory Rate 16 /min Height 64 inches 5'4" Weight 164.12 lb BMI (Body Mass Index) 28.2 kg/m2 08/22/2013 BP Systolic 110 mmHg BP Diastolic 66 mmHg Heart Rate 72 /min Body Temperature 97.7 F Respiratory Rate 16 /min Height 64 inches 5'4" Weight 163.00 lb BMI (Body Mass Index) 28.0 kg/m2 Results Test Date Test Result H/L Range Note CBC Auto Diff 06/06/2017 White Blood Count 7.7 10^3/uL 3.5-10.8 Red Blood Count 4.45 10^6/uL 4.0-5.4 Hemoglobin 13.4 g/dL Low 14.0-18.0 Hematocrit 41 % Low 42-52 Mean Corpuscular Volume 92 fL 80-94 Mean Corpuscular Hemoglobin 30 pg 27-31 Mean Corpuscular HGB Conc 33 g/dL 31-36 Red Cell Distribution Width 15 % 10.5-15 Platelet Count 142 10^3/uL Low 150-450 Mean Platelet Volume 8 um3 7.4-10.4 Abs Neutrophils 4.2 10^3/uL 1.5-7.7 Abs Lymphocytes 2.3 10^3/uL 1.0-4.8 Abs Monocytes 1.0 10^3/uL High 0-0.8 Abs Eosinophils 0.2 10^3/uL 0-0.6 Abs Basophils 0.1 10^3/uL 0-0.2 Abs Nucleated RBC 0.01 10^3/uL Granulocyte % 54.2 % 38-83 Lymphocyte % 29.6 % 25-47 Monocyte % 12.7 % High 1-9 Eosinophil % 2.6 % 0-6 Basophil % 0.9 % 0-2 Nucleated Red Blood Cells % 0.1 Inr/Protime 06/06/2017 Inr 1.06 0.89-1.11 Laboratory test finding 06/06/2017 Partial Thrombo Time 29.4 seconds 26.0 -36.3 PTT Lactic Acid 1.1 mmol/L 0.5-2.0 1 Comp Metabolic Panel 06/06/2017 Sodium 138 mmol/L 133-145 Potassium 3.9 mmol/L 3.5-5.0 Chloride 108 mmol/L 101-111 Co2 Carbon Dioxide 25 mmol/L 22-32 Anion Gap 5 mmol/L 2-11 Glucose 91 mg/dL 70-100 Blood Urea Nitrogen 26 mg/dL High 6-24 Creatinine 1.05 mg/dL 0.67-1.17 BUN/Creatinine Ratio 24.8 High 8-20 Calcium 8.8 mg/dL 8.6-10.3 Total Protein 6.0 g/dL Low 6.4-8.9 Albumin 3.6 g/dL 3.2-5.2 Globulin 2.4 g/dL 2-4 Albumin/Globulin Ratio 1.5 1-3 Total Bilirubin 0.40 mg/dL 0.2-1.0 Alkaline Phosphatase 52 U/L 34-104 Alt 13 U/L 7-52 Ast 19 U/L 13-39 Egfr Non- 66.5 >60 Egfr 85.5 >60 2 Laboratory test finding 06/06/2017 Troponin I 0.01 ng/mL <0.04 Laboratory test finding 06/06/2017 Point of Care Glucose 134 mg/dL High 70 -100 3 Laboratory test finding 04/21/2017 TSH 3.11 mIU/L 0.50-6.00 Free T4 1.31 ng/dL 0.75-1.54 Comprehensive Metabolic Prof 04/21/2017 Sodium 142 mEq/L 134-149 Potassium 4.8 mEq/L 3.6-5.5 Chloride 105 mEq/L 94-112 Carbon Dioxide 24 mEq/L 21-32 Glucose 105 mg/dL 70-105 BUN 28 mg/dL High 6-26 Creatinine 1.1 mg/dL 0.6-1.4 BUN/Creat Ratio 25.5 CALC 8.0-36.0 Calcium 9.1 mg/dL 8.6-10.2 Total Protein 6.6 g/dL 6.4-8.3 Albumin 4.1 g/dL 3.8-5.5 Globulin 2.5 g/dL 2.0-4.8 A/G Ratio 1.6 CALC 0.6-2.3 Alk. Phosphatase 64 U/L 22-95 Alt (SGPT) 16 U/L 7-35 Ast (Sgot) 23 U/L 5-34 Total Bilirubin 0.3 mg/dL 0.2-1.3 GFR Non- >60 ml/min/1.73m^ >=60 GFR >60 ml/min/1.73m^ >=60 Complete Blood Count 04/21/2017 WBC 5.7 x10^3/UL 3.6-9.6 RBC 4.65 x10^6/UL 3.90-5.70 HGB 14.2 g/dL 12.1-17.2 HCT 41 % 36-50 MCV 89.0 fL 82.2-97.4 MCH 30.6 pg 27.6-33.3 MCHC 34.3 g/dL 33.0-35.5 RDW 15.1 % High 11.6-13.7 PLT 193 x10^3/UL 150-400 MPV 7.6 fL 7.4-10.4 Gran # 3.1 x10^3/UL 1.5-7.2 Lymph# 2.1 x10^3/UL 0.7-4.9 [place]# 0.5 x10^3/UL 0.1-0.9 Gran % 52.7 % 42.2-75.2 Lymph % 38.0 % 20.5-51.1 [place]% 9.3 % 1.7-9.3 Laboratory test finding 12/06/2016 Magnesium 2.2 mg/dL 1.9-2.7 Lipase 37 U/L 11.0-82.0 Creatine Kinase(CK) 103 U/L 10-223 C Reactive Protein 31.71 mg/L High < 5.00 4 TSH (Thyroid Stim Horm) 1.17 mcIU/mL 0.34-5.60 Comp Metabolic Panel 12/06/2016 Sodium 138 mmol/L 133-145 Potassium 4.2 mmol/L 3.5-5.0 Chloride 108 mmol/L 101-111 Co2 Carbon Dioxide 24 mmol/L 22-32 Anion Gap 6 mmol/L 2-11 Glucose 101 mg/dL High 70-100 Blood Urea Nitrogen 26 mg/dL High 6-24 Creatinine 1.18 mg/dL High 0.67-1.17 BUN/Creatinine Ratio 22.0 High 8-20 Calcium 9.2 mg/dL 8.6-10.3 Total Protein 6.4 g/dL 6.4-8.9 Albumin 3.6 g/dL 3.2-5.2 Globulin 2.8 g/dL 2-4 Albumin/Globulin Ratio 1.3 1-3 Total Bilirubin 0.40 mg/dL 0.2-1.0 Alkaline Phosphatase 59 U/L 34-104 Alt 15 U/L 7-52 Ast 26 U/L 13-39 Egfr Non- 58.3 >60 Egfr 74.9 >60 5 CKMB 12/06/2016 CKMB ng/mL 3.0 ng/mL 0.6-6.3 Laboratory test finding 12/06/2016 Troponin I 0.01 ng/mL <0.04 6 CBC Auto Diff 12/06/2016 White Blood Count 5.8 10^3/uL 3.5-10.8 Red Blood Count 4.72 10^6/uL 4.0-5.4 Hemoglobin 13.8 g/dL Low 14.0-18.0 Hematocrit 42 % 42-52 Mean Corpuscular Volume 89 fL 80-94 Mean Corpuscular Hemoglobin 29 pg 27-31 Mean Corpuscular HGB Conc 33 g/dL 31-36 Red Cell Distribution Width 14 % 10.5-15 Platelet Count 131 10^3/uL Low 150-450 Mean Platelet Volume 9 um3 7.4-10.4 Abs Neutrophils 2.5 10^3/uL 1.5-7.7 Abs Lymphocytes 1.7 10^3/uL 1.0-4.8 Abs Monocytes 1.4 10^3/uL High 0-0.8 Abs Eosinophils 0.2 10^3/uL 0-0.6 Abs Basophils 0 10^3/uL 0-0.2 Abs Nucleated RBC 0.01 10^3/uL Granulocyte % 43.3 % 38-83 Lymphocyte % 28.6 % 25-47 Monocyte % 23.9 % High 1-9 Eosinophil % 3.4 % 0-6 Basophil % 0.8 % 0-2 Nucleated Red Blood Cells % 0.1 Laboratory test finding 12/06/2016 Partial Thrombo Time 30.1 seconds 26.0 -36.3 PTT Lactic Acid 1.3 mmol/L 0.5-2.0 7 B-Type Natriuretic Peptide BNP 141 pg/mL High 8 Inr/Protime 12/06/2016 Inr 1.05 0.89-1.11 Urinalysis Profile 12/06/2016 Urine Color Yellow Urine Appearance Clear Urine Specific [place] 1.020 1.010-1.030 Urine pH 5.0 5-9 Urine Urobilinogen Negative Negative Urine Ketones Negative Negative Urine Protein Negative Negative Urine Leukocytes Negative Negative Urine Blood 1+ Negative Urine Nitrite Negative Negative Urine Bilirubin Negative Negative Urine Glucose Negative Negative Urine White Blood Cell Absent Absent Urine Red Blood Cell Trace(0-2/hpf) Absent Urine Bacteria Absent Absent Urine Squamous Epithelial Cell Present Absent Complete Blood Count 08/16/2016 WBC 6.5 x10^3/UL 3.6-9.6 RBC 4.78 x10^6/UL 3.90-5.70 HGB 14.4 g/dL 12.1-17.2 HCT 43 % 36-50 MCV 90.0 fL 82.2-97.4 MCH 30.1 pg 27.6-33.3 MCHC 33.6 g/dL 33.0-35.5 RDW 14.7 % High 11.6-13.7 PLT 158 x10^3/UL 150-400 MPV 6.9 fL Low 7.4-10.4 Gran # 4.2 x10^3/UL 1.5-7.2 Lymph# 2.0 x10^3/UL 0.7-4.9 [place]# 0.3 x10^3/UL 0.1-0.9 Gran % 62.2 % 42.2-75.2 Lymph % 31.7 % 20.5-51.1 [place]% 6.1 % 1.7-9.3 Basic Metabolic Profile 08/16/2016 Sodium 143 mEq/L 134-149 Potassium 5.1 mEq/L 3.6-5.5 Chloride 104 mEq/L 94-112 Carbon Dioxide 25 mEq/L 21-32 Glucose 110 mg/dL High 70-105 9 BUN 25 mg/dL 6-26 Creatinine 1.3 mg/dL 0.6-1.4 BUN/Creat Ratio 19.2 CALC 8.0-36.0 Calcium 9.8 mg/dL 8.6-10.2 GFR Non- 55 ml/min/1.73m^ Low >=60 GFR >60 ml/min/1.73m^ >=60 Laboratory test 06/17/2016 Surgical Pathology SEE RESULT BELOW 10, 11 finding Laboratory test 06/10/2016 Surgical Pathology SEE RESULT BELOW 12, 13 finding Laboratory test 05/31/2016 Free T4 1.33 ng/dL 0.75-1.54 finding TSH 1.45 mIU/L 0.50-6.00 Complete Blood Count 11/28/2015 WBC 5.7 x10^3/UL 3.6-9.6 RBC 4.88 x10^6/UL 3.90-5.70 HGB 15.0 g/dL 12.1-17.2 HCT 46 % 36-50 MCV 94.0 fL 82.2-97.4 MCH 30.8 pg 27.6-33.3 MCHC 33.0 g/dL 33.0-35.5 RDW 13.7 % 11.6-13.7 PLT 158 x10^3/UL 150-400 MPV 8.2 fL 7.4-10.4 Gran # 3.3 x10^3/UL 1.5-7.2 Lymph# 2.1 x10^3/UL 0.7-4.9 [place]# 0.3 x10^3/UL 0.1-0.9 Gran % 56.6 % 42.2-75.2 Lymph % 37.4 % 20.5-51.1 [place]% 6.0 % 1.7-9.3 Comprehensive Metabolic Prof 11/28/2015 Sodium 139 mEq/L 134-149 Potassium 5.2 mEq/L 3.6-5.5 Chloride 103 mEq/L 94-112 Carbon Dioxide 27 mEq/L 21-32 Glucose 106 mg/dL High 70-105 14 BUN 18 mg/dL 6-26 Creatinine 1.0 mg/dL 0.6-1.4 BUN/Creat Ratio 18.0 CALC 8.0-36.0 Calcium 9.2 mg/dL 8.6-10.2 Total Protein 6.7 g/dL 6.4-8.3 Albumin 4.1 g/dL 3.8-5.5 Globulin 2.6 g/dL 2.0-4.8 A/G Ratio 1.6 CALC 0.6-2.3 Alk. Phosphatase 55 U/L 22-95 Alt (SGPT) 21 U/L 7-35 Ast (Sgot) 27 U/L 5-34 Total Bilirubin 0.6 mg/dL 0.2-1.3 GFR Non- >60 ml/min/1.73m^ >=60 GFR >60 ml/min/1.73m^ >=60 Laboratory test finding 11/28/2015 TSH 6.86 mIU/L High 0.50-6.00 15 Free T4 1.12 ng/dL 0.75-1.54 Urinalysis Profile 03/28/2015 Urine Color Yellow Urine Appearance Clear Urine Specific [place] 1.012 1.010-1.030 Urine pH 6.0 5-9 Urine Urobilinogen Negative Negative Urine Ketones Negative Negative Urine Protein Negative Negative Urine Leukocytes Negative Negative Urine Blood Negative Negative Urine Nitrite Negative Negative Urine Bilirubin Negative Negative Urine Glucose Negative Negative Laboratory test finding 03/28/2015 Magnesium 2.1 mg/dL 1.9-2.7 Troponin I 0.00 ng/mL <0.03 16 TSH (Thyroid Stim Horm) 1.98 ?IU/mL 0.34-5.60 Comp Metabolic Panel 03/28/2015 Sodium 138 mmol/L 133-145 Chloride 107 mmol/L 101-111 Co2 Carbon Dioxide 25 mmol/L 22-32 Glucose 133 mg/dL High 70-100 Blood Urea Nitrogen 21 mg/dL 6-24 Creatinine 1.05 mg/dL 0.67-1.17 BUN/Creatinine Ratio 20.0 8-20 Calcium 9.2 mg/dL 8.6-10.3 Total Protein 6.4 g/dL 6.4-8.9 Albumin 3.9 g/dL 3.2-5.2 Globulin 2.5 g/dL 2-4 Albumin/Globulin Ratio 1.6 1-3 Total Bilirubin 0.60 mg/dL 0.2-1.0 Alkaline Phosphatase 53 U/L 34-104 Alt 23 U/L 7-52 Egfr Non- 66.8 >60 Egfr 85.9 >60 17 Potassium 4.8 mmol/L 3.5-5.0 Anion Gap 6 mmol/L 2-11 Ast 29 U/L 13-39 Laboratory test finding 03/28/2015 Lactic Acid 2.1 mmol/L 0.5-2.2 Inr/Protime 03/28/2015 Inr 1.00 0.78-1.07 CBC Auto Diff 03/28/2015 White Blood Count 6.1 10^3/uL 4.8-10.8 Red Blood Count 4.71 10^6/uL 4.0-5.4 Hemoglobin 14.6 g/dL 14.0-18.0 Hematocrit 44 % 42-52 Mean Corpuscular Volume 93 fL 80-94 Mean Corpuscular Hemoglobin 31 pg 27-31 Mean Corpuscular HGB Conc 33 g/dL 31-36 Red Cell Distribution Width 14 % 10.5-15 Platelet Count 119 10^3/uL Low 150-450 Mean Platelet Volume 9 um3 7.4-10.4 Abs Neutrophils 3.4 10^3/uL 1.5-7.7 Abs Lymphocytes 1.8 10^3/uL 1.0-4.8 Abs Monocytes 0.7 10^3/uL 0-0.8 Abs Eosinophils 0.2 10^3/uL 0-0.6 Abs Basophils 0 10^3/uL 0-0.2 Abs Nucleated RBC 0 10^3/uL Granulocyte % 55.9 % 38-83 Lymphocyte % 29.1 % 25-47 Monocyte % 11.6 % High 1-9 Eosinophil % 2.8 % 0-6 Basophil % 0.6 % 0-2 Nucleated Red Blood Cells % 0.1 Laboratory test finding 01/27/2015 TSH 3.38 mIU/L 0.50-6.00 Free T4 1.31 ng/dL 0.75-1.54 Comprehensive Metabolic Prof 01/27/2015 Sodium 139 mEq/L 134-149 Potassium 5.1 mEq/L 3.6-5.5 Chloride 101 mEq/L 94-112 Carbon Dioxide 27 mEq/L 21-32 Glucose 106 mg/dL High 70-105 18 BUN 21 mg/dL 6-26 Creatinine 1.0 mg/dL 0.6-1.4 BUN/Creat Ratio 21.0 CALC 8.0-36.0 Calcium 10.0 mg/dL 8.6-10.2 Total Protein 7.0 g/dL 6.4-8.3 Albumin 4.3 g/dL 3.8-5.5 Globulin 2.7 g/dL 2.0-4.8 A/G Ratio 1.6 CALC 0.6-2.3 Alk. Phosphatase 67 U/L 22-95 Alt (SGPT) 37 U/L High 7-35 19 Ast (Sgot) 34 U/L 5-34 Total Bilirubin 0.3 mg/dL 0.2-1.3 Laboratory test finding 01/21/2014 TSH 3.92 mIU/L 0.50-6.00 Free T4 1.02 ng/dL 0.75-1.54 CBC Electronic (a) 11/20/2013 WBC 5.5 3.6-9.6 RBC 4.79 3.90-5.70 Hemoglobin (Fma/CMC/CTX) 14.5 g/dL 12.1 - 17.2 Hematocrit (Fma/CMC/CTX) 44.4 % 36.1 - 50.3 Platelets 194 10^3/ul 150-400 Lymph% 33.3 % 17.0-48.0 Mixed% 5.5 Neutrophils % 61.2 Mean Corpuscular Vol 93 82.2-97.4 Mean Corpuscular Hemoglobin 30.3 27.6-33.3 Mean Corpuscular Hemo Concen 32.6 32.0-36.0 RDW 12.3 11.6-13.7 Mean Platelet Volume 7.8 6.5-11.0 Comprehensive Metabolic Prof 11/20/2013 Albumin 4.4 g/dL 3.8-5.5 Alk. Phos. 64 U/L 22-95 Alt (SGPT) 12 U/L 10-40 Ast (Sgot) 23 U/L 5-34 BUN 22 mg/dL 6-26 Calcium 9.6 mg/dL 8.6-10.2 Chloride 101 mEq/L 94-112 Creatinine 1.1 mg/dL 0.6-1.4 Carbon Dioxide 25 mEq/L 21-32 Glucose 106 mg/dL High 70-105 20 Sodium 140 mEq/L 134-149 Total Bilirubin 0.6 mg/dL 0.2-1.3 Total Protein 6.9 g/dL 6.3-8.1 Potassium 4.5 mEq/L 3.6-5.5 Globulin 2.5 g/dL 2.0-4.8 A/G Ratio 1.8 Calc 0.6-2.3 BUN/Creat Ratio 19.5 Calc 8.0-36.0 Lipid Profile 11/20/2013 Cholesterol 213 mg/dL High 120-200 HDL 44 mg/dL 30-70 Triglycerides 104 mg/dL 30-200 HDL Risk Factor 4.9 CALC High 0.0-4.4 LDL (Calculated) 148 CALC High 0-129 VLDL (Calculated) 21 mg/dL 0-50 Laboratory test finding 11/20/2013 TSH 6.26 mIU/L High 0.50-6.00 21 Free T4 0.92 ng/dL 0.75-1.54 Ua - Non Micro (Fma) 11/16/2013 Appearance CLEAR Color YELLOW Glucose NEG Bilirubin NEG Ketones TRACE SP Grav >=1.030 Blood NEG PH 5.5 Protein NEG Urobil 0.2 Nitrite NEG Leukocytes (Fma/CMC/Centrex) NEG 1 [facility] Severe Sepsis and Septic Shock Management Bundle Measure requires all lactic acids initially measuring >2.0 mmol/L be repeated. 2 Because ethnic data is not always readily available, this report includes an eGFR for both -Americans and non- Americans. The National Kidney Disease Education Program (NKDEP) does not endorse the use of the MDRD equation for patients that are not between the ages of 18 and 70, are , have extremes of body size, muscle mass, or nutritional status, or are non- or non-. According to the National Kidney Foundation, irrespective of diagnosis, the stage of the disease is based on the level of kidney function: Stage Description GFR(mL/min/1.73 m(2)) 1 Kidney damage with normal or decreased GFR 90 2 Kidney damage with mild decrease in GFR 60-89 3 Moderate decrease in GFR 30-59 4 Severe decrease in GFR 15-29 5 Kidney failure <15 (or dialysis) 3 Set Up Person: [id number] 4 Acute inflammation: >10.00 5 Because ethnic data is not always readily available, this report includes an eGFR for both -Americans and non- Americans. The National Kidney Disease Education Program (NKDEP) does not endorse the use of the MDRD equation for patients that are not between the ages of 18 and 70, are , have extremes of body size, muscle mass, or nutritional status, or are non- or non-. According to the National Kidney Foundation, irrespective of diagnosis, the stage of the disease is based on the level of kidney function: Stage Description GFR(mL/min/1.73 m(2)) 1 Kidney damage with normal or decreased GFR 90 2 Kidney damage with mild decrease in GFR 60-89 3 Moderate decrease in GFR 30-59 4 Severe decrease in GFR 15-29 5 Kidney failure <15 (or dialysis) 6 99th percentile=0.04 ng/mL Troponin results at [facility] and [facility] are not interchangeable. 7 [facility] Severe Sepsis and Septic Shock Management Bundle Measure requires all lactic acids initially measuring >2.0 mmol/L be repeated. 8 >100 to <200 pg/mL: likely compensated congestive heart failure (CHF) 200 to 400 pg/mL: likely moderate CHF >400 pg/mL: likely moderate to severe CHF 9 RESULTS VERIFIED BY REPEAT ANALYSIS 10 [id number] SEE RESULT BELOW Name: JL VELÁSQUEZ : [address]: Bari Saxena MD Acct: [id number] Unit: [id number] AGE: 86 Location: [facility] Re06/17/16 SEX: M Status: REG REF SPEC: [id number] CANDI: 06/17/16-15[address] [facility] [address]: Bari Saxena MD REQ: [id number] RECD: 06/17/16 STATUS: RUBEN FOY DR: Ming Houston MD _ ORDERED: LEVEL IV COMMENTS: [id number] FINAL DIAGNOSIS Skin, left arm, excision: -- Invasive, well-differentiated squamous cell carcinoma, keratoacanthoma type. -- Deep, tip and lateral margins of resection are clear. CLINICAL HISTORY See previous specimen [id number] PRE-OPERATIVE DIAGNOSIS Left arm skin lesion; suture 12 o'clock; D48.5 GROSS DESCRIPTION The specimen is received in formalin labeled, Left Arm Skin Lesion, Suture 12 :00, and consists of a 3.2 x 1.3 cm sen-white hairbearing skin ellipse excised to a depth of 0.3 cm with a central 1.0 x 1.0 x 0.2 cm blanched white indurated nodule with a central 0.5 x 0.3 cm dark brown scabrous area. There is a suture attached to one long axis designating 12:00. The specimen is inked as follows: 9:00 half black, 3:00 half blue, 12:00 tip green; serially sectioned from 12:00 to 6:00 and entirely submitted in cassettes A through D to include tips in cassette A, and lesion in cassette C and D. Signed (signature on file) Carroll Castillo MD [id number] END OF REPORT * ML=Testing performed at Main Lab DEPARTMENT OF PATHOLOGY, [address] [place] [address] Carroll Castillo M.D. Director [facility] # [id number] SEE RESULT BELOW Name: JL VELÁSQUEZ : [address]: Bari Saxena MD Acct: [id number] Unit: [id number] AGE: 86 Location: [facility] Re06/10/16 SEX: M Status: REG REF SPEC: [id number] CANDI: [id number]/10/[id number] [facility] DR: Bari Saxena MD REQ: [id number] RECD: 06/10/163587 STATUS: RUBEN FOY DR: Ming Houston MD _ ORDERED: LEVEL IV COMMENTS: [id number] FINAL DIAGNOSIS Skin, left arm, biopsy: -- Invasive squamous cell carcinoma, well differentiated. -- Lesional cells extend to the biopsy base and to bilateral specimen edges. PRE-OPERATIVE DIAGNOSIS D48.5 POST-OPERATIVE DIAGNOSIS Left arm lesion GROSS DESCRIPTION The specimen is received in formalin labeled, Left Arm Lesion, and consists of two sen-white irregular skin fragments measuring 0.4 x 0.4 x 0.3 cm and 0.5 x 0.4 x 0.4 cm. The specimen is differentially inked, bisected and entirely submitted in one cassette. Signed (signature on file) Dinora Pfeiffer MD 1009 END OF REPORT * ML=Testing performed at Main Lab DEPARTMENT OF PATHOLOGY, [address] [place] [address] Carroll Castillo M.D. Director [facility] # [id number] 14 consistent w/ previous results 15 RESULTS VERIFIED BY REPEAT ANALYSIS 16 Reference Range and Interpretation: TnI (ng/mL) Interpretation Less Than 0.03 ng/mL Not supportive of diagnosis of MN 0.03 - 0.50 ng/mL Indeterminate: suggest serial studies if clinically indicated. Greater than 0.5 ng/mL Consistent with diagnosis of MN 17 Because ethnic data is not always readily available, this report includes an eGFR for both -Americans and non- Americans. The National Kidney Disease Education Program (NKDEP) does not endorse the use of the MDRD equation for patients that are not between the ages of 18 and 70, are , have extremes of body size, muscle mass, or nutritional status, or are non- or non-. According to the National Kidney Foundation, irrespective of diagnosis, the stage of the disease is based on the level of kidney function: Stage Description GFR(mL/min/1.73 m(2)) 1 Kidney damage with normal or decreased GFR 90 2 Kidney damage with mild decrease in GFR 60-89 3 Moderate decrease in GFR 30-59 4 Severe decrease in GFR 15-29 5 Kidney failure <15 (or dialysis) 18 RESULTS VERIFIED BY REPEAT ANALYSIS 19 RESULTS VERIFIED BY REPEAT ANALYSIS 20 RESULT KIRSTIN'D 21 RESULT KIRSTIN'D Procedures Description No Information Encounters Type Date Location Provider CPT E/M Dx Office Visit 08/25/2017 2:20p [facility] Ming Houston M.D. 22861 E03.8 R29.6 S09.90xA H90.2 Office Visit 04/21/2017 3:00p [facility] Ming Houston M.D. 07901 E03.8 R29.6 D64.9 Office Visit 12/13/2016 2:00p [facility] Ming Houston M.D. 53824 E03.8 S01.311A R53.1 Office Visit 06/07/2016 11:00a [facility] Office Ming Houston M.D. 50859 D48.5 E03.8 Office Visit 05/31/2016 11:40a [facility] Office Ming Houston M.D. 89242 E03.8 S50.862D Office Visit 05/29/2016 11:30a Main Office EDYTA Altman 74699 S50.862A W57.xxxA Office Visit 11/28/2015 10:00a Main Office Ming Houston M.D. 49786 E03.8 G45.9 R53.83 D69.3 Z23 Office Visit 04/21/2015 11:20a Main Office Ming Houston M.D. 67537 782.0 244.9 435.9 Office Visit 03/19/2015 8:30a [place] [address] 913.0 782.0 Office Visit 01/27/2015 11:40a Main Office Ming Houston M.D. 55322 244.9 600.00 333.1 441.4 Office Visit 07/29/2014 11:40a Main Office Ming Houston M.D. 65121 244.9 600.00 333.1 V04.81 Office Visit 01/21/2014 4:40p [facility] Office Ming Houston M.D. 56450 244.9 600.00 Office Visit 10/04/2013 11:10a [facility] Office Ming Houston M.D. 55291 216.8 692.9 244.9 Office Visit 08/22/2013 8:00a [facility] Office Priscilla CuencaSHAN 68195 244.9 715.80 600.00 Plan of Care Future Appointment(s):12/29/2017 2:20 pm - Ming Houston M.D. at [facility] Mtutzi6612/16/2017 - Eliane Walker, NPJ16.8 Pneumonia due to other specified infectious organismsNew Medication:Azithromycin 250 mgR05 CoughComments: Coughing is rough on your system. Not only do they make you really tired but they dehydrate you really quickly! ~U_Supportive care~u_: 1) Make sure you are resting. This is the only way the body can take the energy it needs to heal itself. 2) Fluids, fluids, fluids! - Drink a lot of water or other caffeine free, clear liquids - Use a humidifier in your room at night - If tolerated, use a saline nasal spray to help clear out your sinuses 3) Cough and blow it out , the more you can get out of your system the better4) Make sure you are washing your hands well so you are not spreading your illness to the community. 5) You can take Acetaminophen or Ibuprofen as directed for pain Call or return if worsening [id number] Unspecified hearing loss, unspecified earComments: referral to [id number] Impacted cerumen, right earComments:Warm water irrigation successful. Patient tolerated well. Discussed not to use Q tips, rather use a wash cloth around outside of ears. Avoid excessive use of headphones that enter ear canal, if using for long time use over ear type. Debrox as needed for excessive ear wax.AllComments:~B_~U_Medication Management~b _~u_ Patient Understands medications he's taking? Yes No Are there Barriers to Adherence? Yes No Has the patient been asked about herbal supplements and therapies, and OTC meds? Yes No ~B_~U_Care Plan~b_~u _1. Patient has been queried about patient's goals/preferences and functional/ lifestyle goals at relevant visits. If relevant, describe: na2. Treatment goals as explained to the patient: above3. Are there barriers to meeting treatment goals? Yes No If Yes, please describe:4. Self-Management goals as described to the patient: Yes NoFollow up:As always, we strongly encourage a healthy diet and making physical activity a part of your every day life. If you have questions about how or where to start, please contact the office.
[2017-12-17] MEDS ORDERED: Azithromycin IV(*) 500 MG in NS 0.9% 250 ML* 250 ML IVPB ONE (14:18)
[2017-12-17] MEDS ORDERED: cefTRIAXone(*) 1 GM in NS 0.9% 50 ML* 50 ML IVPB ONE (14:18)
--- NOTE | 2017-12-17 14:25 | RAD ---
HISTORY: Altered mental status, fall COMPARISONS: June 16, 2017 TECHNIQUE: Multiple contiguous axial CT scans were obtained of the head without intravenous contrast. FINDINGS: HEMORRHAGE/INFARCT: There is no hemorrhage or acute infarct. MASSES/SHIFT: There is no mass or shift. EXTRA-AXIAL SPACES: There are no extra-axial fluid collections. SULCI AND VENTRICLES: There is diffuse and proportional enlargement of the sulci and ventricles. CEREBRUM: There are no focal parenchymal abnormalities. BRAINSTEM: There are no focal parenchymal abnormalities. CEREBELLUM: There are no focal parenchymal abnormalities. VESSELS: The vessels are grossly normal. PARANASAL SINUSES: The paranasal sinuses are clear. ORBITS: The orbits are unremarkable. BONES AND SOFT TISSUE: No bone or soft tissue abnormalities are noted. OTHER: None IMPRESSION: NO ACUTE INTRACRANIAL PATHOLOGY.
--- NOTE | 2017-12-17 14:27 | RAD ---
HISTORY: Altered mental status, fall COMPARISONS: None TECHNIQUE: Multiple contiguous axial CT scans were obtained of the cervical spine without intravenous contrast, with coronal and sagittal multiplanar reformations. FINDINGS: BRAIN: The visualized brain is unremarkable CENTRAL CANAL: Evaluation of the central canal is limited on CT technique; however, there is no obvious canalicular mass or epidural hemorrhage. ALIGNMENT: There is mild scoliotic curvature of the spine. VERTEBRAL BODIES: There is diffuse osteopenia. Is multilevel bridging anterolateral marginal osteophyte formation. There is no displaced fracture. JOINTS: There is osteoarthritis of the uncovertebral and facet joints. There is osteoarthritis of the atlantoaxial articulation. MUSCULATURE: Unremarkable INTERVERTEBRAL DISCS: There is diffuse loss of intervertebral disc height. AXIAL IMAGES: C2-C3: There is bilateral facet hypertrophy. There is mild left neural foraminal narrowing. There is no osseous central canal stenosis. C3-C4: There is bilateral vertebral and facet hypertrophy. There is severe bilateral neural foraminal narrowing. There is no osseous central canal stenosis. C4-C5: There is bilateral symmetry. There is no osseous neural foraminal area or central canal stenosis. C5-C6: There is left greater than right uncovertebral and facet hypertrophy. There is moderate bilateral neural foraminal narrowing. There is no osseous central canal stenosis. C6-C7: There is bilateral uncovertebral facet hypertrophy. There is moderate bilateral neural foraminal narrowing. There is no osseous central canal stenosis. C7-T1: There is no osseous neural foraminal narrowing or central canal stenosis. SOFT TISSUES: The visualized soft tissues of the neck are unremarkable. The prevertebral fat stripe is preserved. OTHER: None. IMPRESSION: 1. OSTEOPENIA. 2. DEGENERATIVE DISC DISEASE AND OSTEOARTHRITIS. 3. NO ACUTE OSSEOUS INJURY TO THE CERVICAL SPINE
[2017-12-17 14:48] LABS: ABS Basophils 0.1 10^3/ul (0-0.2); ABS Eosinophils 0 10^3/ul (0-0.6); ABS Lymphocytes 0.7 10^3/ul (1.0-4.8); ABS Monocytes 0.8 10^3/ul (0-0.8); ABS Neutrophils 5.3 10^3/ul (1.5-7.7); ABS Nucleated RBC 0 10^3/ul; Eosinophil % 0 % (0-6); Hematocrit 41 % (42-52); Hemoglobin 13.7 g/dl (14.0-18.0); Lymphocyte % 10.8 % (25-47); Mean Corpuscular HGB Conc 34 g/dl (31-36); Mean Corpuscular Hemoglobin 31 pg (27-31); Mean Corpuscular Volume 90 fL (80-94); Mean Platelet Volume 8 um3 (7.4-10.4); Nucleated Red Blood Cells % 0; Platelet Count 145 10^3/ul (150-450); Red Blood Count 4.49 10^6/ul (4.0-5.4); Red Cell Distribution Width 15 % (10.5-15); White Blood Count 6.9 10^3/ul (3.5-10.8)
--- NOTE | 2017-12-17 14:53 | RAD ---
HISTORY: Altered mental status COMPARISONS: December 06, 2016 VIEWS: 1: frontal portable view of the chest at 2:45 PM FINDINGS: LINES AND TUBES: None. CARDIOMEDIASTINAL SILHOUETTE: The cardiomediastinal silhouette is normal for portable technique. PLEURA: The costophrenic angles are sharp. No pleural abnormalities are noted. LUNG PARENCHYMA: The lungs are clear. ABDOMEN: The upper abdomen is clear. There is no subphrenic gas. BONES AND SOFT TISSUES: Degenerative changes are noted IMPRESSION: NO ACTIVE CARDIOPULMONARY DISEASE.
[2017-12-17 14:56] LABS: INR 1.03 (0.77-1.02)
[2017-12-17 15:06] LABS: EGFR Non-African American 61.7 (>60)
[2017-12-17] MEDS: NS 0.9% 1000 ML* 1,000 ML IV SCH (18:02)
--- NOTE | 2017-12-17 21:54 | HP ---
CC: Dr. Houston * [facility] MEDICINE HISTORY AND PHYSICAL: DATE OF ADMISSION: 12/17/17 PRIMARY CARE PHYSICIAN: Dr. Houston. ATTENDING PHYSICIAN: Dr. Marcos Hannah * (dictation provided by Marci Means NP). CHIEF COMPLAINT: Cough and altered mental status. HISTORY OF PRESENT ILLNESS: Mr. Elena is an 87-year-old male with a past medical history of ITP, hypothyroidism, who presents to the hospital today with concern for altered mental status and cough. The patient is a resident of [place] and he has some memory issues and much of the history is provided by his daughter, who is at the bedside today. Per her report, he was feeling unwell yesterday. He was noted to have a cough and to be weaker and a little shakier than usual. He was also noted to not be quite as oriented as his usual. For that reason, they went to Dr. Houston and were evaluated. There was suspicion at that point that he likely had pneumonia and he was started on azithromycin. The patient started that medication; however, today he was more altered and was found on the ground by staff at [facility]. The patient himself has no complaint at this point. He is awake. He is alert and able to provide some details, but not much in the way of recent medical history. The daughter states that initially he seemed quite out of it when she saw him today in the emergency room; but with IV fluids, he started to perk up. In the emergency room, Mr. Elena had labs, which showed no leukocytosis. His BUN and creatinine were normal. His flu swab was negative. His vital signs were stable. He is not hypoxic on room air. His physical exam is notable for significant congestion bilaterally; however, his chest x-ray shows no evidence of infiltrate at this point. PAST MEDICAL HISTORY: 1. Hypothyroidism. 2. ITP. 3. History of reported abdominal aneurysm "stable." 4. Hip replacement. MEDICATIONS: 1. Azithromycin 250 mg p.o. daily. 2. Levothyroxine 112 mcg p.o. daily. ALLERGIES: No known drug allergies. FAMILY HISTORY: The patient reports that the mother related to dementia at 79 and father related to heart attack in his 60s. SOCIAL HISTORY: No report of alcohol, tobacco, or drug use. The patient lives at [facility]. His daughter, Lore, is the healthcare proxy. REVIEW OF SYSTEMS: A 14-point review of systems was completed with Mr. Elena and though he is confused and has some memory loss, he did not have any positive review of systems other than mentioned above. PHYSICAL EXAMINATION GENERAL: Mr. Elena is lying in bed. He is in no acute distress. His daughter is at the bedside. VITAL SIGNS: Temperature 97.8, pulse rate 59, respiratory rate 22, O2 saturation 96% on room air, blood pressure 108/59. NEURO: He is alert. He is oriented to himself. He knows that he lives at [place]; but in speaking with him at any length, he is disorganized in his thinking. He follows all commands appropriately. He moves all extremities equally. There is no facial asymmetry or focal weakness. Extraocular movements are intact. LUNGS: Coarse rhonchi bilaterally with no accessory muscle use and good aeration. HEART: S1, S2. No murmur, rub, or gallop and regular. ABDOMEN: Soft, nontender with bowel sounds presents x4. EXTREMITIES: No cyanosis, no edema. SKIN: Intact. DIAGNOSTIC STUDIES/LAB DATA: Flu swabs are negative. WBC 6.9, hemoglobin 13.7 , hematocrit 41, platelet count 145. INR 1.03. Sodium 136, potassium 4.1, chloride 105, serum bicarbonate 25, BUN 25, creatinine 1.12, glucose 121, lactic acid 1.0. Chest x-ray shows no acute intrathoracic process. Brain CT shows "no acute intracranial pathology." Cervical spine CT shows "osteopenia, degenerative disk disease, and osteoarthritis. No acute osseous injury to the cervical spine." ASSESSMENT: Mr. Elena is an 87-year-old male with past medical history of ITP, hypothyroidism, and dementia, who presents to the hospital today with concern for cough and altered mental status, now with fall. Our plans are for observation in the hospital for the followin. Bronchitis versus pneumonia: The patient is very congested and has a very harsh cough on examination; however, his chest x-ray does not show an infiltrate and he has no leukocytosis. Plan for now to continue with ceftriaxone, azithromycin as I have a high suspicion for pneumonia based on his overall presentation. T further elucidate and characterize this versus bronchitis, I have also add on a CRP and procalcitonin. I am also checking strep and Legionella urine antigens. The patient does not have sepsis. Lactic acid is normal. 2. Hypothyroidism. Continue levothyroxine. 3. Code status is DNR and a MOLST form has been completed with him and his daughter. 4. Disposition to medical floor. TIME SPENT: Approximately 60 minutes were spent on the admission of this patient, more than half time spent with the patient at the bedside reviewing the events leading up to this hospitalization, performing the physical examination, and reviewing my plan of care. MARCI MEANS, SHAN [id number]/CPS #: [id number] KIM
[2017-12-17] MEDS ORDERED: Heparin VIAL(*) 5000 UNITS/ML VIAL (FIVE THOUSAND) SUBCUT SCH (22:00)
--- NOTE | 2017-12-17 22:59 | PN ---
Hospitalist Progress Note Date of Service: 12/17/17 called for worse shaking. I saw and evaluated Mr. Elena. He is sleeping but alerts to voice. Says he doesn't feel well. On exam, his vitals are unremarkable, he has a wet, congested cough and is slightly tachypneic but in no distress. He is shaking which improves slightly with intention. He is disoriented. BG 103 Check PVR, check blood cultures.
[2017-12-18] MEDS ORDERED: Ondansetron INJ* 2 MG/ML VIAL IV PRN (00:10)
[2017-12-18] MEDS ORDERED: Ondansetron INJ* 2 MG/ML VIAL ONE (00:14)
--- NOTE | 2017-12-18 00:19 | PN ---
Hospitalist Progress Note Date of Service: 12/18/17 I spoke at length with Mr. Elena's daughter Ann. She says he has had episodes of full-body shaking in the past when he's had particularly stressful days like when he fell back in May. His cognitive decline has been steady over the past six months. I explained how ill he appears this evening, and suggested the possibility of him declining overnight. She confirms that he would not want intubation or resuscitation, and she understands the severity of his illness. She does want us to continue treating with IV medications. Since he is coming from [place], I am broadening his antibiotics to vanc/zosyn. He also had an episode of emesis, so I am checking a stat KUB to rule out obstruction.
[2017-12-18] MEDS ORDERED: Vancomycin(*) 1,000 MG in NS 0.9% 250 ML* 250 ML IVPB ONE (00:30)
[2017-12-18] MEDS ORDERED: Vancomycin(*) 1,250 MG in NS 0.9% 250 ML* 250 ML IVPB ONE (00:30)
[2017-12-18] MEDS ORDERED: Vancomycin per Pharmacy* NOTE FOLLOW UP PRN (00:59)
[2017-12-18] MEDS ORDERED: ZOSYN 3.375 GM x ONE DOSE over 30 miuntes IVPB ×2 (02:00)
[2017-12-18] MEDS: Piperacillin/Tazobac ADVAN(*) 3.375 GM in NS 0.9% 100 ML* 100 ML IVPB SCH ×3 (05:36→22:18)
[2017-12-18] MEDS: NS 0.9% 1000 ML* 1,000 ML IV SCH (05:44)
[2017-12-18] MEDS: Levothyroxine TAB* 112 MCG TAB PO SCH (05:46)
[2017-12-18 05:50] LABS: ABS Basophils 0 10^3/ul (0-0.2); ABS Eosinophils 0 10^3/ul (0-0.6); ABS Lymphocytes 0.7 10^3/ul (1.0-4.8); ABS Monocytes 1.1 10^3/ul (0-0.8); ABS Nucleated RBC 0 10^3/ul; Eosinophil % 0 % (0-6); Hematocrit 38 % (42-52); Lymphocyte % 6.1 % (25-47); Mean Corpuscular HGB Conc 35 g/dl (31-36); Mean Corpuscular Hemoglobin 31 pg (27-31); Mean Corpuscular Volume 90 fL (80-94); Mean Platelet Volume 8 um3 (7.4-10.4); Nucleated Red Blood Cells % 0; Platelet Count 133 10^3/ul (150-450); Red Blood Count 4.21 10^6/ul (4.0-5.4); Red Cell Distribution Width 14 % (10.5-15); White Blood Count 10.7 10^3/ul (3.5-10.8)
--- NOTE | 2017-12-18 07:35 | RAD ---
INDICATION: Vomiting. COMPARISON: There are no prior studies available for comparison. TECHNIQUE: Frontal supine films of the abdomen were obtained. There are linear densities which project over the abdomen which appear to be external to the patient. FINDINGS: The small bowel and colon appear nondistended. The patient is status post total right hip replacement surgery. IMPRESSION: NO EVIDENCE FOR OBSTRUCTION.
--- NOTE | 2017-12-18 10:16 | PN ---
Subjective Date of Service: 12/18/17 Interval History: Mr. Elena is minimally verbal, mumbles at times. He awakens to voice and follows some commands. He doesn't appear to be in any acute distress. Objective Active Medications: Acetaminophen (Tylenol Tab*) 650 mg PO Q6H PRN Sodium Chloride (Ns 0.9% 1000 Ml*) 1,000 mls @ 100 mls/hr IV PER RATE SVEN Vancomycin HCl 750 mg/ Sodium (Chloride) 250 mls @ 166.667 mls/hr IVPB Q12H SVEN Piperacillin Sod/Tazobactam (Sod 3.375 gm/ Sodium Chloride) 100 mls @ 25 mls/ hr IVPB Q8H SVEN Levothyroxine Sodium (Synthroid Tab*) 112 mcg PO 0600 SVEN Ondansetron HCl (Zofran Inj*) 4 mg IV Q4H PRN Pharmacy Consult (Vancomycin Per Pharmacy*) 1 note FOLLOW UP . PRN Pharmacy Profile Note (Vancomycin Trough Check) 1 note FOLLOW UP 1200 ONE Vital Signs: Temp Pulse Resp BP Pulse Ox 97.6 F 60 20 105/48 96 12/18/17 07:44 12/18/17 08:16 12/18/17 07:44 12/18/17 07:50 12/18/17 08:00 Oxygen Devices in Use Now: None Appearance: Male lying in bed, twitching in upper and lower extremities Eyes: No Scleral Icterus Ears/Nose/Mouth/Throat: Mucous Membranes Moist Neck: Trachea Midline Respiratory: Symmetrical Chest Expansion and Respiratory Effort, - - rhonchi bilaterally Cardiovascular: NL Sounds; No Murmurs; No JVD, No Edema Abdominal: NL Sounds; No Tenderness; No Distention Lymphatic: No Cervical Adenopathy Extremities: No Edema Skin: No Rash or Ulcers Neurological: - - Opens eyes to stimulation, follows commands to take a deep breath and court reporter hands, twitching noted to upper and lower extremities bilaterally Result Diagrams: 12/18/17 05:16 12/18/17 05:16 Microbiology and Other Data: . Assess/Plan/Problems-Billing Assessment: Mr. Elena is an 87 yo male with a PMH of who was admitted on 12/17/17 with fall, altered mental status and concern for early pneumonia. - Patient Problems (1) Pneumonia Comment: - Remains afebrile with no leukocytosis. - Rhonchi bilaterally with wet cough but cxray without infiltrate on arrival. - Given AMS and overall picture, will continue vanco and zosyn for now, de- escalate in 24 hours based on clinical course. (2) Altered mental status Comment: - Suspect delirium related to illness in setting of dementia. - CT brain negative on arrival. - EEG ordered for tomorrow, low suspicion for seizures. (3) Dementia Comment: - Supportive care. (4) Hypothyroidism Comment: - Continue levothyroxine. (5) DVT prophylaxis Comment: - SCDs. (6) DNR (do not resuscitate) Comment: - MOLST completed. Status and Disposition: Convert to inpatient with need for LOS > 2 days. Anticipate discharge to [facility] when medically stable.
[2017-12-18] MEDS: Vancomycin(*) 750 MG in NS 0.9% 250 ML* 250 ML IVPB SCH (12:56)
[2017-12-18] MEDS ORDERED: guaiFENesin LIQ* 100 MG/5 ML UDC PO PRN (13:35)
[2017-12-18] MEDS ORDERED: Benzonatate CAP* 100 MG PO PRN (13:36)
[2017-12-18] MEDS: Acetaminophen TAB* 325 MG PO PRN (14:46)
[2017-12-18] MEDS ORDERED: Azithromycin IV(*) 250 MG in NS 0.9% 250 ML* 250 ML IVPB SCH (16:00)
[2017-12-18] MEDS ORDERED: cefTRIAXone(*) 1 GM in NS 0.9% 50 ML* 50 ML IVPB SCH (17:00)
[2017-12-18] MEDS ORDERED: traMADol TAB* 50 MG PO PRN (17:14)
--- NOTE | 2017-12-18 22:44 | ED ---
Dimas Larry Stephanie, scribed for Jf Carpenter MD on 12/17/17 at 1407 . Neurological HPI - HPI Summary HPI Summary: The pt is an 87 y/o M presenting to the ED with c/o weakness that began today s/ p fall. The pt was recently diagnosed with azithromycin for a lung infection. Per daughter, the pt was experiencing cognitive changes recently, appears weak and his speech is not making sense. Per daughter, the pts voice and speech have become softer in the past few months. The pt walks and speaks at baseline. - History of Current Complaint Chief Complaint: EDAltMentalStatus Stated Complaint: AMS Time Seen by Provider: 12/17/17 13:48 Hx Obtained From: Family/Trim Mechanic - daughter Onset/Duration: Started hours ago - s/p fall, Still Present Timing: Constant Pain Intensity: 0 Pain Scale Used: 0-10 Numeric Aggravating: Nothing Alleviating: Nothing - Allergy/Home Medications Allergies/Adverse Reactions: Allergies Allergy/AdvReac Type Severity Reaction Status Date / Time No Known Allergies Allergy Verified 03/28/15 11:51 Home Medications: Home Medications Azithromycin TAB* [Zithromax TAB (Z-SHANNAN) 250 mg #6 tabs] 250 mg PO DAILY [History Confirmed 12/17/17] PMH/Surg Hx/FS Hx/Imm Hx Endocrine/Hematology History: Denies: Hx Diabetes Cardiovascular History: Denies: Hx Hypertension, Hx Pacemaker/ICD Respiratory History: Denies: Hx Asthma, Hx Chronic Obstructive Pulmonary Disease (COPD) Sensory History: Denies: Hx Hearing Aid Psychiatric History: Denies: Hx Panic Disorder - Cancer History Cancer Type, 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 TONSILS. WISDOM TEETH Infectious Disease History: No Infectious Disease History: Denies: Hx Clostridium Difficile, Hx Hepatitis, Hx Human Immunodeficiency Virus (HIV), Hx of Known/Suspected MRSA, Hx Shingles, Hx Tuberculosis, Hx Known/ Suspected VRE, Hx Known/Suspected VRSA, History Other Infectious Disease, Traveled Outside the [place] in Last 30 Days - Family History Known Family History: Positive: Cardiac Disease, Hypertension - Social History Occupation: Retired Lives: Alone Alcohol Use: None Alcohol Amount: BEER DAILY Substance Use Type: Reports: None Smoking Status (MU): Never Smoked Tobacco Review of Systems Negative: Fever, Chills Negative: Erythema Negative: Sore Throat Negative: Chest Pain Negative: Shortness Of Breath, Cough Negative: Abdominal Pain, Vomiting, Nausea Negative: dysuria, hematuria Negative: Myalgia, Edema Skin: Other - Negative: dizziness Negative: Rash Neurological: Other - cognitive changes Positive: Weakness All Other Systems Reviewed And Are Negative: Yes Physical Exam - Summary Physical Exam Summary: Constitutional: Well-developed, Well-nourished, Alert. (-) Distressed, appears physically weak Skin: Warm, Dry HENT: Normocephalic; Atraumatic, dry oral mucosa Eyes: Conjunctiva normal Neck: Musculoskeletal ROM normal neck. (-) JVD, (-) Stridor, (-) Tracheal deviation Cardio: Rhythm regular, rate normal, Heart sounds normal; Intact distal pulses; The pedal pulses are 2+ and symmetric. Radial pulses are 2+ and symmetric. (-) Murmur Pulmonary/Chest wall: Effort normal. (-) Respiratory distress, (-) Wheezes, (-) Rales, rhonchi present Abd: Soft. (-) Tenderness, (-) Distension, (-) Guarding, (-) Rebound Musculoskeletal: (-) Edema Lymph: (-) Cervical adenopathy Neuro: Alert, Oriented x3, Strength normal, Cranial nerves II-XII are grossly intact. (-) Dysmetria, (-) Nystagmus, (-) Ataxia by finger to nose testing, (-) Sensory deficit. Psych: Mood and affect Normal Triage Information Reviewed: Yes Vital Signs On Initial Exam: Initial Vitals Temp Pulse Resp BP Pulse Ox 97.8 F 58 20 103/76 96 12/17/17 13:38 12/17/17 13:38 12/17/17 13:38 12/17/17 13:38 12/17/17 13:38 Vital Signs Reviewed: Yes Diagnostics - Vital Signs Vital Signs Temp Pulse Resp BP Pulse Ox 12/17/17 13:38 97.8 F 58 20 103/76 96 - Laboratory Result Diagrams: 12/17/17 14:38 Lab Statement: Any lab studies that have been ordered have been reviewed, and results considered in the medical decision making process. - CT Cervical spine CT Interpretation: Positive (See Comments) CT Interpretation Completed By: Radiologist - 1. OSTEOPENIA. 2. DEGENERATIVE DISC DISEASE AND OSTEOARTHRITIS. 3. NO ACUTE OSSEOUS INJURY TO THE CERVICAL SPINE Brain CT Interpretation: No Acute Changes CT Interpretation Completed By: Radiologist - NO ACUTE INTRACRANIAL PATHOLOGY. - EKG 14:05 EKG Rhythm: Sinus Bradycardia - 54 BPM EKG Interpretation: no STEMI Course/Dx - Course Course Of Treatment: The pt is an 87 y/o M presenting to the ED with c/o weakness that began today s/p fall. The pt was recently diagnosed with azithromycin for a lung infection. He received IV abx in ED. He had no finding concerning for stroke. The pt will be admitted to the hospital. - Diagnoses Provider Diagnoses: PNA (pneumonia), Delirium, Fall - Physician Notifications Discussed Care Of Patient With: Lyndsay Bear - Dr. Bear accepts the pt for admission Time Discussed With Above Provider: 15:03 Discharge - Discharge Plan Condition: Stable Disposition: ADMITTED TO [facility] Referrals: Ming Houston MD [Primary Care Provider] - The documentation as recorded by the Dimas perez Stephanie accurately reflects the service I personally performed and the decisions made by , Jf Carpenter MD.
[2017-12-19] MEDS: Acetaminophen TAB* 325 MG PO PRN (00:35)
[2017-12-19] MEDS ORDERED: Acetaminophen SUPP* 325 MG SUPP PR ONE (00:47)
[2017-12-19] MEDS ORDERED: LORazepam INJ* 2 MG/ML 1 ML VIAL IV PUSH ONE (00:47)
[2017-12-19] MEDS ORDERED: LORazepam INJ* 2 MG/ML 1 ML VIAL ONE (00:50)
[2017-12-19] MEDS ORDERED: Acetaminophen SUPP* 325 MG SUPP ONE (00:51)
[2017-12-19] MEDS: Vancomycin(*) 750 MG in NS 0.9% 250 ML* 250 ML IVPB SCH (03:16)
[2017-12-19] MEDS ORDERED: Vancomycin(*) 750 MG in NS 0.9% 250 ML* 250 ML IVPB SCH (03:30)
[2017-12-19] MEDS: NS 0.9% 1000 ML* 1,000 ML IV SCH (03:47)
[2017-12-19] MEDS: Levothyroxine TAB* 112 MCG TAB PO SCH (05:58)
[2017-12-19] MEDS: Piperacillin/Tazobac ADVAN(*) 3.375 GM in NS 0.9% 100 ML* 100 ML IVPB SCH ×3 (05:58→22:10)
[2017-12-19 06:47] LABS: EGFR Non-African American 61.7 (>60)
--- NOTE | 2017-12-19 07:53 | RAD ---
INDICATION: Altered mental status COMPARISON: Most recent CT the brain is dated December 17, 2017 TECHNIQUE: Contiguous axial sections of the brain were obtained from the skull base to the vertex without contrast. FINDINGS: The ventricles, cisterns and sulci exhibit symmetrical involutional changes. There is mild periventricular and subcortical white matter hypoattenuation similar appearance to the prior CT the brain and most consistent with chronic microvascular disease. Otherwise the silva-white matter differentiation is adequately maintained and there is no sulcal effacement. No significant focal abnormality or mass effect is present. There is no evidence for intracranial hemorrhage. No significant focal osseous abnormality is present. There is a small amount of fluid in the dependent portion of the right maxillary sinus. The mastoid air cells are well aerated bilaterally. IMPRESSION: Stable age-appropriate chronic findings as described above without CT evidence of acute intracranial abnormality.
--- NOTE | 2017-12-19 08:19 | PN ---
Subjective Date of Service: 12/19/17 Interval History: Mr. Elena is awake and alert this morning and does not offer any complaint. He is a confused about details and is not oriented to place or time. Objective Active Medications: Acetaminophen (Tylenol Tab*) 650 mg PO Q6H PRN Benzonatate (Tessalon Cap*) 100 mg PO BID PRN Guaifenesin (Robitussin*) 5 ml PO Q4H PRN Sodium Chloride (Ns 0.9% 1000 Ml*) 1,000 mls @ 100 mls/hr IV PER RATE SVEN Piperacillin Sod/Tazobactam (Sod 3.375 gm/ Sodium Chloride) 100 mls @ 25 mls/ hr IVPB Q8H SVEN Vancomycin HCl 750 mg/ Sodium (Chloride) 250 mls @ 166.667 mls/hr IVPB 0330, 1530 SVEN Levothyroxine Sodium (Synthroid Tab*) 112 mcg PO 0600 SVEN Ondansetron HCl (Zofran Inj*) 4 mg IV Q4H PRN Pharmacy Consult (Vancomycin Per Pharmacy*) 1 note FOLLOW UP . PRN Pharmacy Profile Note (Vancomycin Trough Check) 1 note FOLLOW UP 1500 ONE Tramadol HCl (Ultram*) 50 mg PO Q6H PRN Vital Signs: Temp Pulse Resp BP Pulse Ox 97.8 F 61 20 113/61 96 12/19/17 07:57 12/19/17 07:57 12/19/17 07:57 12/19/17 07:57 12/19/17 07:57 Oxygen Devices in Use Now: None Appearance: Male lying in bed in NAD, intentional tremor upper extremities, twitching of upper and lower extremities Eyes: No Scleral Icterus Ears/Nose/Mouth/Throat: Mucous Membranes Moist Neck: Trachea Midline Respiratory: Symmetrical Chest Expansion and Respiratory Effort, - - Rhonchi bilaterally Cardiovascular: NL Sounds; No Murmurs; No JVD, No Edema Abdominal: NL Sounds; No Tenderness; No Distention Lymphatic: No Cervical Adenopathy Extremities: No Edema Skin: No Rash or Ulcers Neurological: NL Muscle Strength and Tone, - - Alert, oriented to self only, follows all commands Nutrition: Taking PO's Result Diagrams: 12/18/17 05:16 12/19/17 05:57 Microbiology and Other Data: . Assess/Plan/Problems-Billing Assessment: Mr. Elena is an 87 yo male with a PMH of who was admitted on 12/17/17 with fall, altered mental status and concern for early pneumonia. - Patient Problems (1) Pneumonia Comment: - Febrile overnight. - Continue vanco and zosyn for now, de-escalate in 24 hours dependent on clinical course. (2) Altered mental status Comment: - Patient with full body shaking overnight 12/17 and 12/18. Family report that he has done this in the past when anxious or ill. - Suspect delirium with encephalopathy related to illness in setting of dementia. - CT brain negative on arrival. Repeat CT 12/19 also negative - EEG ordered, low suspicion for seizures. (3) Dementia Comment: - Supportive care. (4) Hypothyroidism Comment: - Continue levothyroxine. (5) DVT prophylaxis Comment: - SCDs. (6) DNR (do not resuscitate) Comment: - MOLST completed. Status and Disposition: Convert to inpatient with need for LOS > 2 days. Anticipate discharge to [place] when medically stable.
[2017-12-19 13:28] LABS: Urine Appearance Cloudy; Urine Blood 3+ (Negative); Urine Color Yellow; Urine Ketones Trace (Negative); Urine Protein 1+(30 mg/dL) (Negative); Urine Specific Gravity 1.027 (1.010-1.030); Urine Urobilinogen Negative (Negative)
[2017-12-19] MEDS ORDERED: Vancomycin Trough Check NOTE FOLLOW UP ONE (15:00)
[2017-12-19 16:11] LABS: Vancomycin Trough 7.2 mcg/mL
--- NOTE | 2017-12-19 17:04 | CONS ---
CONSULTATION NOTE: DATE OF CONSULT: 12/18/17 Diagnosis: Urinary Retention Procedure: Complex placement of Coude Urethral catheter, 16 Fr. HISTORY OF PRESENT ILLNESS: I was asked by the hospitalist service to see this 87-year-old white male because of urinary retention and inability to introduce a Niño catheter. Mr. Elena is a resident at the [facility]. He was admitted because of shortness of breath and pneumonia. He was noted to have urinary incontinence, and in urinary retention, bladder scan showed residual in excess of 600 cc. Attempted placement of Niño catheter by the nursing staff was not successful. A consultation was urgently obtained. I obtained the urological history from his son-in-law. He reports that the patient has frequency and urgency, urinary incontinence, and using diapers at night, indicating overflow urinary incontinence. At one point, he was on tamsulosin, but he is not taking it at this time. He has been incontinent and he uses diapers especially at night. On examination, he is lying in bed, sitting up because of shortness of breath. There is some suprapubic distention. External genitalia feel normal. Rectal exam showed a moderately enlarged, but nonindurated and nonsuspicious prostate. Attempt at placement of a 16 regular Niño catheter was not successful due to resistance at the level of the prostate. There was urethral bleeding noted. A 16-Macedonian coude was then passed with some difficulty with resistance at the level of the prostatic urethra, but was successfully introduced inside the bladder. A total of 800 cc of concentrated clear urine was drained. No gross hematuria noted. The plan is to keep him on catheter drainage at this time. He will be started on tamsulosin and finasteride. He should be given a trial of voiding at one point. He will follow in my office as an outpatient. [id number]/[facility] #: [id number] KIM
--- NOTE | 2017-12-19 18:39 | RAD ---
INDICATION: 87-year-old with altered mental status COMPARISON: CT December 19, 2017; MRI July 18, 2015 TECHNIQUE: sagittal T1 FLAIR, axial diffusion, axial T1 FLAIR, axial T2, axial T2 FLAIR, and SWI images were acquired. FINDINGS: Craniocervical junction: The craniocervical junction appears normal. Ventricles/sulci: The ventricles and cisterns are normal in size and configuration for age. There is age-related cortical atrophy Brain parenchyma: There are no new focal parenchymal abnormalities. The punctate focus of susceptibility artifact in the right posterior parietal lobe is consistent with chronic hemorrhage. This could be secondary to hemorrhage from a slow flow vascular malformation. There is no evidence of intracranial mass or mass effect. The diffusion weighted images show no evidence of acute ischemia. Intracranial hemorrhage: As above. Tiny punctate focus of chronic hemorrhage. Extra-axial spaces: There are no extra-axial fluid collections or masses. Orbits: There are no MR abnormalities of the orbital structures. Paranasal sinuses/mastoid: The paranasal sinuses are clear. The mastoid air cells are well aerated.. Vascular: No abnormalities are seen. 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 NO ACUTE FINDINGS. 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
--- NOTE | 2017-12-19 22:09 | CONS ---
CC: Dr. Houston* CONSULTATION NOTE: DATE OF CONSULT: 12/19/17 PATIENT OF: Marci Means NP. HISTORY OF PRESENT ILLNESS: This is an 87-year-old man who I am asked to evaluate for an episode of confusion. He presented on 12/17/17 after having a cough the day before admission and being weaker and a little bit more tremulous. He has had a longstanding tremor according to his daughters of these 3 years' time. He was slightly disoriented, but he was found on the ground quite confused with difficulty with speaking. This has improved over the past day and a half and is much better, but may not be completely back to normal. It is unclear whether he struck his head when he went to the ground. He has a history of hypothyroidism, ITP, stable abdominal aneurysm, hip replacement. He has had some mild long-standing memory issues. MEDICATIONS: Include: 1. Levothyroxine 112 mcg daily. 2. Azithromycin 250 mg daily. ALLERGIES: He has no known drug allergies. FAMILY HISTORY: His mother related to dementia at age 79 and father of a heart attack in his 60s. SOCIAL HISTORY: He does not smoke, drink or use drugs. He lives at [place]. I spoke to his daughter, Lore, his healthcare proxy. REVIEW OF SYSTEMS: Difficult to obtain because of memory issues, but there was no positives reported other than in the HPI. PHYSICAL EXAM: Temperature 97.8, pulse 61, respirations 20, blood pressure 113/ 61. He was sleeping, but would arouse to his name. He knew that he was at [facility] and that he lives at [place]. He knew his age, but he tended to be tired and would go back to sleep. Apparently, this is significant improvement from prior days where he had word finding difficulty as well as confusion. Cranial nerves II through XII were normal. Red reflexes present in both eyes. He moves all extremities with power. He had an intention tremor. I did not notice any cogwheel and when he was asleep, his legs were quite restless. Reflexes were 1 to trace with downing toes. Chest clear. Cardiovascular: Regular rate and rhythm. Abdomen is soft with positive bowel sounds. He had no clear bruising. DIAGNOSTIC STUDIES/LAB DATA: Labs include white count of 10.7, hematocrit of 38 , platelet count 133,000. INR of 1.03, PTT 32. CMP was normal other than the BUN of 25. Glucose has been slightly elevated. He had C-reactive protein of 21. UA had 1+ protein, 1+ white cells. Influenza was negative. His CT scan I reviewed and showed some diffuse atrophy and some periventricular white matter disease. ASSESSMENT: I spoke to one of his daughters in person and his son and daughter over the phone. I discussed that his EEG showed some left temporal sharp waves which could indicate either underlying structural lesions such as an ischemic insult or possibly a tendency towards seizures. It is not clear what his episode was that prompted him to go to the ground and be brought to the hospital. He could have fallen or fainted if this could have been a stroke with some aphasia and confusion afterwards. He could have had a concussion and bumped his head. I discussed with the daughters that I do not think a seizure would have caused this whole scenario in terms of his lack of improvement for significantly more than a day after being found. Usually you would recover from a seizure within hours, but possibly up to a day or so. It is possible he could have had a seizure and had concussion, but it is not at all clear. I discussed the pros and cons of treating empirically with seizure medicine, but they did not want to proceed because of the side effects. They knew the risks of seizures including things such as respiratory arrest. In light that we do not know for sure what is going on, I will check an MRI scan to screen to see if we can see if this was a stroke. His platelets will go down dramatically from time to time according to the family and so aspirin would be a concern. Once we knew that he was having a clear tendency towards strokes, he would be better off not on aspirin. I discussed that we could also look at this blood vessels, but he does not want any further major procedures or operations and so we are going to not do that. Thank you for sharing his case. [id number]/[facility] #: [id number] KIM
--- NOTE | 2017-12-20 01:32 | EEG ---
ELECTROENCEPHALOGRAPHY: DATE OF STUDY: ROOM #[id number] DATE OF DICTATION: 12/19/17 PATIENT OF: Marci Means NP CLINICAL PROBLEM: This 87-year-old man being evaluated for an episode of apparent loss of consciousness, being found on the ground, confused, he is now back to his baseline. MEDICATIONS: Include: 1. Synthroid. 2. Tessalon. 3. Robitussin. 4. Zofran. 5. Zosyn. 6. Vancomycin. REPORT: With the patient awake, background cerebral activity consists of moderate amplitude, posterior dominant 7 to 8 Hz rhythm. At times, the patient becomes drowsy with further slowing into the theta range. At times, he has left temporal sharp waves but no clear subclinical seizures are noted. The patient never falls fully asleep. CLINICAL IMPRESSION: This awake and drowsy EEG is abnormal showing some mild slowing of background consistent with the patient's age, but also occasional left temporal sharply contoured activity suggesting either underlying area of injury or a tendency towards seizures. [id number]/[facility] #: [id number] [facility]
[2017-12-20] MEDS: Levothyroxine TAB* 112 MCG TAB PO SCH (06:07)
[2017-12-20] MEDS: Piperacillin/Tazobac ADVAN(*) 3.375 GM in NS 0.9% 100 ML* 100 ML IVPB SCH ×3 (06:07→22:16)
[2017-12-20 07:45] LABS: ABS Basophils 0 10^3/ul (0-0.2); ABS Eosinophils 0.3 10^3/ul (0-0.6); ABS Lymphocytes 1.2 10^3/ul (1.0-4.8); ABS Monocytes 0.8 10^3/ul (0-0.8); ABS Neutrophils 4.3 10^3/ul (1.5-7.7); ABS Nucleated RBC 0 10^3/ul; Eosinophil % 4.8 % (0-6); Hematocrit 36 % (42-52); Hemoglobin 12.4 g/dl (14.0-18.0); Lymphocyte % 17.6 % (25-47); Mean Corpuscular HGB Conc 34 g/dl (31-36); Mean Corpuscular Hemoglobin 30 pg (27-31); Mean Corpuscular Volume 89 fL (80-94); Mean Platelet Volume 9 um3 (7.4-10.4); Nucleated Red Blood Cells % 0.1; Platelet Count 142 10^3/ul (150-450); Red Blood Count 4.06 10^6/ul (4.0-5.4); Red Cell Distribution Width 14 % (10.5-15); White Blood Count 6.6 10^3/ul (3.5-10.8)
[2017-12-20 07:58] LABS: EGFR Non-African American 69.6 (>60)
[2017-12-20] MEDS: Acetaminophen TAB* 325 MG PO PRN (10:25)
--- NOTE | 2017-12-20 16:29 | PN ---
Subjective Date of Service: 12/20/17 Interval History: Patient very communicative and jovial today. Some forgetfulness, at baseline per daughter. Patient states he has been having intermittent bowel movements without blood. 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 Patient complains of persistent cough which is intermittently productive. Patient denies F/C, N/V, abdominal pain, constipation, CP, SOB, Or other pain. Family History: Unchanged from Admission Social History: Unchanged from Admission Past Medical History: Unchanged from Admission Objective Active Medications: Acetaminophen (Tylenol Tab*) 650 mg PO Q6H PRN PRN Reason: PAIN Last Admin: 12/20/17 10:25 Dose: 650 mg Benzonatate (Tessalon Cap*) 100 mg PO BID PRN PRN Reason: COUGH Guaifenesin (Robitussin*) 5 ml PO Q4H PRN PRN Reason: COUGH Last Admin: 12/18/17 14:46 Dose: 5 ml Sodium Chloride (Ns 0.9% 1000 Ml*) 1,000 mls @ 100 mls/hr IV PER RATE [facility] Last Admin: 12/19/17 03:47 Dose: 100 mls/hr Piperacillin Sod/Tazobactam (Sod 3.375 gm/ Sodium Chloride) 100 mls @ 25 mls/ hr IVPB Q8H [facility] Last Admin: 12/20/17 15:02 Dose: 25 mls/hr Levothyroxine Sodium (Synthroid Tab*) 112 mcg PO 0600 [facility] Last Admin: 12/20/17 06:07 Dose: 112 mcg Ondansetron HCl (Zofran Inj*) 4 mg IV Q4H PRN PRN Reason: NAUSEA Tramadol HCl (Ultram*) 50 mg PO Q6H PRN PRN Reason: PAIN Vital Signs - 8 hr 12/20/17 12/20/17 11:52 14:42 Temperature 98.1 F Pulse Rate 53 54 Respiratory 19 16 Rate Blood Pressure 91/45 (mmHg) O2 Sat by Pulse 96 95 Oximetry Oxygen Devices in Use Now: None Appearance: Patient is an 87yo male who appears stated age and is sitting in the chair in NAD. Eyes: No Scleral Icterus, PERRLA Ears/Nose/Mouth/Throat: NL Teeth, Lips, Gums, Clear Oropharnyx, Mucous Membranes Moist Neck: NL Appearance and Movements; NL JVP, Trachea Midline, - - Tender swollen left sided submandibular LN. Respiratory: Symmetrical Chest Expansion and Respiratory Effort, - - Rhonchi in left anterior lung and base. Cardiovascular: NL Sounds; No Murmurs; No JVD, RRR, No Edema Abdominal: NL Sounds; No Tenderness; No Distention, No Hepatosplenomegaly Extremities: No Edema, No Clubbing, Cyanosis Skin: No Rash or Ulcers, No Nodules or Sclerosis Neurological: Alert and Oriented x 3, NL Sensation, NL Muscle Strength and Tone , - - CN II-XII intact. Result Diagrams: 12/20/17 07:07 12/20/17 07:07 Microbiology and Other Data: . Assess/Plan/Problems-Billing Assessment: Mr. Elena is an 87 yo male with a PMH of who was admitted on 12/17/17 with fall, altered mental status who now has greatly improved mental status after treatment for his pneumonia. - Patient Problems (1) Altered mental status Current Visit: Yes Status: Acute Code(s): R41.82 - ALTERED MENTAL STATUS, UNSPECIFIED SNOMED Code(s): 989686849 Comment: Appreciate Neurology consult. Much improved. Patient with full body shaking overnight 12/17 and 12/18. Family report that he has done this in the past when anxious or ill. Suspect delirium with encephalopathy related to illness in setting of dementia. CT brain negative on arrival. Repeat CT 12/19 also negative. MRI shows stable focus of hemorrhage, no acute stroke. EEG ordered, shows epileptiform discharges. Episode not likely related to seizures per neuro. No need for AED. Will not treat with ASA due to ITP and previous brain hemorrhage. (2) Pneumonia Current Visit: Yes Status: Acute Code(s): J18.9 - PNEUMONIA, UNSPECIFIED ORGANISM SNOMED Code(s): 277222228 Comment: Febrile overnight on 12/18-. Continue zosyn for today and transition to augmentin tomorrow. (3) Neuropathy Current Visit: Yes Status: Acute Code(s): G62.9 - POLYNEUROPATHY, UNSPECIFIED SNOMED Code(s): 108462404 Comment: Appreciate Neurology and Urology input. 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 Likely represents overflow incontinence per urology. Niño in place. Will order Folate and B12. (4) Dementia Current Visit: Yes Status: Acute Code(s): F03.90 - UNSPECIFIED DEMENTIA WITHOUT BEHAVIORAL DISTURBANCE SNOMED Code(s): 08578036 Comment: Supportive care. At baseline per daughter. (5) Hypothyroidism Current Visit: Yes Status: Acute Code(s): E03.9 - HYPOTHYROIDISM, UNSPECIFIED SNOMED Code(s): 00739560 Comment: Continue levothyroxine. TSH elevated. Will order T3 and T4 (6) Urinary retention Current Visit: Yes Status: Acute Code(s): R33.9 - RETENTION OF URINE, UNSPECIFIED SNOMED Code(s): 951297721 Comment: Appreciate urology input. Niño placed by urology on 12/18. Bladder scan showed 600ml. Difficulty passing catheter. Patient voids a small amount frequently at home. Likely overflow incontinence per urology. Continue flomax, proscar, and follow up outpatient with urology for removal of catheter in 10-14 days from placement. (7) DNR (do not resuscitate) Current Visit: Yes Status: Acute Comment: - MOLST completed. (8) DVT prophylaxis Current Visit: Yes Status: Acute Code(s): AWH3515 - SNOMED Code(s): 287510782 Comment: - SCDs due to ITP. Status and Disposition: Convert to inpatient with need for LOS > 2 days. Patient has bed offer from [facility] for tomorrow.
[2017-12-21] MEDS ORDERED: Levothyroxine TAB* 125 MCG TAB PO SCH (06:00)
[2017-12-21] MEDS ORDERED: Amoxicillin/Clavulanate TAB* 875 MG PO SCH (09:00)
[2017-12-21 11:46] VITALS: BP 112/56
--- NOTE | 2017-12-21 12:01 | PN ---
NEUROLOGICAL FOLLOWUP NOTE: DATE OF FOLLOWUP: 12/20/17 PATIENT OF: DEDE Quezada HISTORY: This 87-year-old man seeing in followup for his confusion that lasted for a couple of days time, but today his daughter feels he is back to his baseline with some short-term memory issues, but being oriented with a sense of humor. Of note, he has had some falls in the past. MEDICATIONS: Include: 1. Synthroid. 2. Azithromycin. 3. Some p.r.n. meds for his cough. 4. He is on his piperacillin. PHYSICAL EXAMINATION: Temperature 98.1, pulse 95, respirations 15, blood pressure 91/45. He is alert and oriented. He was making jokes and speaking fluently. Currently, cranial nerves II through XII are intact. Motor exam revealed normal strength. He reached for objects with either hand with a bilateral intention tremor, which is chronic. There was no resting tremor and no cogwheeling. Reflexes trace to 1. Chest: Clear. Cardiovascular: Regular rate. Abdomen is soft with positive bowel sounds. IMAGING DATA: His MRI scan showed some age-appropriate atrophy, some tiny old chronic hemorrhage in his right parietal, but no acute stroke or lesions. LABORATORY DATA: Labs include normal BMP today with calcium of 8.4. His TSH was 7.6. His CBC was significant for hematocrit of 36 and platelets of 142. ASSESSMENT AND PLAN: I discussed with Damien and his daughter that what led to his fall from bed was unclear. It is possibly just fell and had a concussion and it is now cleared. It is possible that he could have had a seizure, although the confusion lasted a while. It is possible that this with some ischemic event, but not seen on scan in spite less likely. The patient and family want little intervention. I discussed the pros and cons of aspirin given his ITP, his falling and the tiny area of blood in his brain. They did not want to take the risk of aspirin, this is appropriate likewise without knowing more definitively whether he was having seizures, they did not want to begin anticonvulsants given the fact it could cause confusion or sedation in a man who is having some memory issues as well. I discussed with him also that he has a bilateral intention tremor and he does not have Parkinson's at this point and also has history of neuropathy and DEDE Ruiz will check B12 and folate. I will be glad to see him back in the office as needed. Thank you for sharing his case. [id number]/[facility] #: [id number] KIM
--- NOTE | 2017-12-21 15:13 | DS ---
CC: Dr. Ming Houston; Dr. Jose Guillory; Dr. Suha Juarez* DISCHARGE SUMMARY: DATE OF ADMISSION: 12/17/17 DATE OF DISCHARGE: 12/21/17 PRIMARY CARE PROVIDER: Dr. Ming Houston. CONSULTING UROLOGIST: Dr. Jose Guillory. MY ATTENDING WHILE IN THE HOSPITAL: Dr. Suha Juarez* (dictated by DEDE Barron). PRIMARY DISCHARGE DIAGNOSES: 1. Pneumonia. 2. Altered mental status. SECONDARY DISCHARGE DIAGNOSES: 1. Hypothyroidism. 2. Immune thrombocytopenic purpura. 3. History of reported abdominal aneurysm. 4. Transient ischemic attack. 5. Pelvic neuropathy. 6. Tremor. STUDIES DONE WHILE IN THE HOSPITAL: Brain CT from 12/17/17 read as no acute intracranial pathology. Chest x-ray from 12/17/17 read as no active cardiopulmonary disease. Electrocardiogram from 12/17/17 shows normal sinus rhythm, no ST segment changes. QTc of 403. Normal axis. Single PAC. One possible dropped beat. No other abnormalities. Abdomen x-ray from 12/18/17 read as no evidence for obstruction. Brain CT from 12/19/17 read as stable atrophic chronic finding as described above without CT evidence of acute intracranial pathology. Brain MRI from 12/19/17 read as age-related cortical atrophy, no acute findings. 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 MEDICATIONS AT DISCHARGE: 1. Levothyroxine 125 mcg p.o. daily. 2. Tylenol 300 mg p.o. q.6 hours as needed. 3. Augmentin 875 mg p.o. b.i.d. x13. 4. Tessalon 100 mg p.o. b.i.d. as needed for cough. 5. Guaifenesin 5 mg p.o. q.4 hours as needed for cough. 6. Finasteride 5 mg p.o. at bedtime. 7. Tamsulosin 0.4 mg p.o. daily. New medications at discharge: 1. Tylenol. 2. Augmentin. 3. Tessalon. 4. Guaifenesin. 5. Levothyroxine. 6. Finasteride. 7. Tamsulosin. Medications discontinued at discharge: 1. Azithromycin 250 mg p.o. daily. 2. Levothyroxine 112 mcg p.o. daily. HOSPITAL COURSE: This is a brief summary of the patient's presentation. For more details, please see the history and physical from Marci Means NP on . In brief, the patient is an 87-year-old male with past medical history significant for the above, who presented to the hospital from [facility] with altered mental status and cough. He has had a significant downward decline in his mental status for the last 6 months per his daughter, but was feeling unwell for 1 day before arrived in the emergency department. He was weaker. The patient has a tremor for which he sees neurologist with no known cause and he was shakier and this tremor was worse than normal. The patient went to Dr. Houston and was started on azithromycin for pneumonia. He had worsening changes in his mental status since found at ground at [facility]. The patient was confused when examined with no much past medical history. The patient had a negative chest x-ray as above. Physical exam significant only for congestion. The patient was admitted to the hospital for bronchitis versus pneumonia and was started initially on ceftriaxone and azithromycin. The patient became more shaky overnight with no vital sign abnormalities. His blood cultures were taken which were negative throughout his hospitalization. The patient's therapy was escalated to vancomycin and Zosyn. The patient's mental status did not improve. The patient continued to have tremors. The patient had fevers overnight from 12/18/17 to 12/19/17. The patient has a long history of urinary incontinence of small amounts approximately every hour, which continued in the hospital. The patient was bladder scan and found to have 600 mL in his bladder. The patient was unable to catheterize by nursing staff and was seen in consultation by Dr. Jose Guillory of Urology who inserted a 16-Sami coude catheter with 800 cc of concentrated clear urine. This was believed to be due to overflow urinary incontinence due to chronic retention. Plan was for him to followup outpatient. The patient was started on tamsulosin and finasteride. The patient's altered mental status continued as well as his shaking. The patient had electroencephalogram, which showed a small focus of epileptogenic activity. The patient was seen in consultation by Dr. Edwardo Disla of Neurology. It was decided not to treat the patient with antiepileptic medication to their sedating side effects, which might possibly exacerbate his underlying dementia and the patient was also not started on aspirin. The patient's MRI was taken and read as above. 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 The patient improved greatly. The patient was able to walk up to 80 feet with physical therapy. On the day of discharge, the patient was mailed to rehab with the goal of returning back to [facility]. The patient's antibiotic therapy was deescalated on 12/19/17 to just be Zosyn and then after 48 hours of being fever free, he was transitioned to oral antibiotics including Augmentin, which he should continue for additional 7 days. PHYSICAL EXAMINATION ON THE DAY OF DISCHARGE: General: The patient is an 87- year- old male who appears stated age and sitting comfortably in bed in no acute distress. Vital Signs: At the time of discharge, temperature 97.6, pulse rate 57, respiratory rate 16, oxygen saturation 97% on room air, blood pressure 112/56. HEENT: Head: Normocephalic, atraumatic. Sclerae anicteric. No conjunctival injection. Nasal mucosa moist. Oral mucosa moist. No pharyngeal erythema, exudates, or discharge. Neck: Supple, nontender. No lymphadenopathy. Lymphadenopathy from previous exam has resolved. No carotid bruit auscultated. Cardiac: Regular rate and rhythm. No clicks, murmurs, gallops, or rubs. Pulses 2+ in bilateral dorsalis pedis, posterior tibialis, and radial areas. No bilateral lower extremity edema noted. Respiratory: Clear to auscultation bilaterally. No wheezes, rales, or rhonchi. Good air exchange bilaterally. The patient has wet cough and rattling sound when he breathes, which is not transmitted through his lungs. Abdomen: Soft, nontender , nondistended. Bowel sounds present, normoactive in all 4 quadrants. No hepatosplenomegaly. No abdominal bruits auscultated. Genitourinary: No suprapubic tenderness or CVA tenderness. Skin: Clean, dry, and intact. No rash. Neuro: Cranial nerves II through XII intact. Strength 5/5 in the bilateral upper and lower extremities distally and proximally. No focal deficits. Psychiatric: Pleasant and cooperative. Alert and oriented x3. LABORATORY DATA ON DAY BEFORE DISCHARGE: White blood cell count 6.6, hemoglobin 12.4, sodium 136, potassium 3.9, chloride 107, carbon dioxide 25, anion gap 4, BUN 18, creatinine 1.01, glucose 97, calcium 8.4, vitamin B12 461, folate 16.9, thyroxine 5.03, total T3 0.55. DISCHARGE PLAN: The patient will be discharged to [facility] for physical therapy and subacute rehab. The patient will be continued on Augmentin for 7 days for his pneumonia. The patient will go out with his Niño catheter and have it removed with Dr. Guillory on as scheduled on 12/30/17 at 0915 in the morning. The patient will be started on tamsulosin and Flomax for his what appears to be chronic urinary retention. The patient should followup. The patient states he has pelvic neuropathy. The patient should follow up with his neurologist, Dr. Jose Payton, who he already sees for his tremor and TIA to discuss this. The patient should return to the hospital for chest pain, shortness of breath, hematuria, or other alarming symptoms. The patient should follow up with his care provider within 1 week from being discharged from [facility]. The patient should engage in activity as tolerated and have regular unrestricted diet. TIME SPENT: Approximately 60 minutes was spent on this discharge, 30 of which was spent [id number] with the patient obtaining history and physical and discussing treatment plan. DEDE BARRON [id number]/[facility] #: [id number] KIM
== END 2017-12-21 17:15 | DRG 194 ==
LOC: ED 13:25 → MED 16:06 → OBSVTOIN 12-18 10:17
PROVIDERS: ADMIT Internal Medicine; ATTEND Internal Medicine
PROC: 0T9B70Z Drainage of Bladder with Drainage Device, Via Natural or Artificial Opening (ICD-10-PCS; principal; 2017-12-18)
PROC: 4A00X4Z Measurement of Central Nervous Electrical Activity, External Approach (ICD-10-PCS; 2017-12-19)
DX: J18.9 Pneumonia, unspecified organism (principal); D69.3 Immune thrombocytopenic purpura; I62.9 Nontraumatic intracranial hemorrhage, unspecified; G62.9 Polyneuropathy, unspecified; G45.9 Transient cerebral ischemic attack, unspecified; F03.90 Unspecified dementia, unspecified severity, without behavioral disturbance, psychotic disturbance, mood disturbance, and anxiety; Z85.828 Personal history of other malignant neoplasm of skin; E03.9 Hypothyroidism, unspecified; Z82.49 Family history of ischemic heart disease and other diseases of the circulatory system; Z96.641 Presence of right artificial hip joint; I71.4 Abdominal aortic aneurysm, without rupture; Z66 Do not resuscitate; M47.892 Other spondylosis, cervical region; R33.9 Retention of urine, unspecified; R25.1 Tremor, unspecified; N39.490 Overflow incontinence; Z82.0 Family history of epilepsy and other diseases of the nervous system; R11.10 Vomiting, unspecified
CPT/HCPCS: 36415; 70450; 70551; 71045; 72125; 74018; 80048; 80053; 80202; 81003; 81015; 82607; 82746; 83605; 84145; 84436; 84443; 84479; 84484; 85025; 85610; 85730; 86140; 87040; 87502; 87899; 93005; 94760; 95819; 99284; A9270-GY; J0456; J0696; J2060; J2405; J2543; J3370